=== PATIENT | female | born 1960 | race Caucasian/White ===

== ENCOUNTER → 2016-04-17 | Outpatient (CLI) | payer OTHER ==
--- NOTE | 2016-04-17 09:51 | DX ---
3 Views Left Foot; Weightbearing Reason for examination: Pain following trauma. Findings: A fracture is not identified. Soft tissue swelling is seen adjacent to the fifth metatarsop halangeal articulation. No radiopaque foreign body is identified. The bone alignment is normal. Mild soft tissue swelling is noted. Impression: Negative for definite fracture with soft tissue swelling noted. Follow up radiography rec ommended as clinically directed.
== END ==
LOC: BMCIMAGING 08:42
PROVIDERS: ATTEND Podiatrist Foot & Ankle Surgery
DX: M79.672 Pain in left foot (principal)

== ENCOUNTER → 2016-06-27 | Outpatient (CLI) | payer OTHER | LOC: BMCIMAGING 14:17 | PROVIDERS: ATTEND Internal Medicine Rheumatology | DX: M79.641 Pain in right hand (principal); M79.642 Pain in left hand ==

== ENCOUNTER 2016-11-10 17:05 | Inpatient (IN) | payer OTHER ==
[2016-11-10] MEDS ORDERED: ACETAMINOPHEN 650 MG SUPP PR ONE ×2 (17:10→17:12)
[2016-11-10] MEDS ORDERED: CEFEPIME HCL 2 GM in D5W 100 ML IV ONE (17:16)
[2016-11-10] MEDS ORDERED: NS 1,000 ML IV ONE (17:16)
[2016-11-10] MEDS ORDERED: ONDANSETRON 4 MG/2 ML VIAL ONE (17:25)
[2016-11-10 17:26] LABS: % IMMATURE GRANULYOCYTES 1.3 % (0.0-1.1); ABSOLUTE IMMATURE GRANULOCYTES 0.21 10^3/uL (0.00-0.10); ADD DIFF? NO; ADD MORPH? NO; ADD SCAN? NO; ATYPICAL LYMPHOCYTE FLAG 20 (0-99); FRAGMENT RBC FLAG 0 (0-99); HEMATOCRIT 34.9 % (38.0-47.0); HEMOGLOBIN 12.2 g/dL (12.6-16.3); LEFT SHIFT FLG 10 (0-99); LIPEMIA HEMOLYSIS FLAG 90 (0-99); MEAN CELL HEMOGLOBIN 32.9 pg (27.9-34.1); MEAN CELL VOLUME 94.1 fL (81.5-99.8); PLATELET CLUMPS FLAG 0 (0-99); PLATELET COUNT 225 10^3/uL (150-400); RED BLOOD CELL COUNT 3.71 10^6/uL (4.18-5.33); RED CELL DISTRIBUTION WIDTH 12.1 % (11.5-15.2)
[2016-11-10] MEDS ORDERED: ONDANSETRON 4 MG/2 ML VIAL IVP ONE (17:27)
--- NOTE | 2016-11-10 17:29 | EDPHY ---
H & P HPI/ROS: CHIEF COMPLAINT: Seizure HISTORY OF PRESENT ILLNESS: The patient is a 56-year-old female who is brought in by ambulance. I spoke with ambulance and her once he arrived. The patient has a history only of rheumatoid arthritis currently on methotrexate and Humira. On she began feeling fatigued and vomiting. She and her thought she had the flu. She stayed in bed mostly. The vomiting ceased after 2 days but then today, on Friday, she developed a fever and seemed more confused than usual although she was able to carry a conversation. She began seizing this evening. She has never had a seizure before. Paramedics states that she was still having some contractions in her foot when they arrived to her house 15 minutes after the initial call. In the ambulance she had another seizure episode, tonic-clonic. Paramedics gave 5 mg of Valium. She is protecting her airway. She has stable vital signs. She did urinate on herself. REVIEW OF SYSTEMS: Unable to obtain secondary to condition EXAM: GENERAL: Unresponsive, warm to touch HEAD: Atraumatic, normocephalic. EYES: Pupils equal round and reactive to light, sclera anicteric, conjunctiva are normal. ENT: Minor tongue abrasion, TMs normal, nares patent, positive gag reflex . Moist mucous membranes. NECK: Normal range of motion, supple without lymphadenopathy or JVD. LUNGS: Coarse breath sounds left lower lobe HEART: Left lower lobe coarse breath sounds ABDOMEN: Soft, nontender, normoactive bowel sounds. No guarding, no rebound. No masses appreciated. BACK: No visible trauma or abrasion EXTREMITIES: No spontaneous movement NEUROLOGICAL: Not cooperative with exam, equal pupillary reflex, no tracking. No movement in extremities. PSYCH: Unresponsive SKIN: Warm, dry, normal turgor, no visible rashes or lesions. Source: Patient, Family, EMS Exam Limitations: Clinical condition - Medical/Surgical History Hx Asthma: No Hx Chronic Respiratory Disease: No Hx Diabetes: No Hx Cardiac Disease: No Hx Renal Disease: No Hx Cirrhosis: No Hx Alcoholism: No Hx HIV/AIDS: No Hx Splenectomy or Spleen Trauma: No Other PMH: Rheumatoid arthritis - Family History Significant Family History: No pertinent family hx - Social History Smoking Status: Never smoked Alcohol Use: Sober Drug Use: None Constitutional: Initial Vital Signs Temperature (C) 39.5 C H 11/10/16 17:05 Heart Rate 110 H 11/10/16 17:05 Respiratory Rate 16 11/10/16 17:05 Blood Pressure 158/74 H 11/10/16 17:05 O2 Sat (%) 95 11/10/16 17:05 O2 Delivery Mode Oxymask O2 (L/minute) 10 Allergies/Adverse Reactions: Penicillins Allergy (Verified 11/10/16 17:22) Sulfa (Sulfonamide Antibiotics) Allergy (Verified 11/12/15 21:12) Home Medications: Medication Instructions Recorded Adalimumab [Humira] 40 mg SQ .Q 2 WEEKS 11/10/16 Methotrexate Sodium [Methotrexate] 15 mg PO FR 11/10/16 Medical Decision Making - Diagnostics EKG Interpretation: An EKG obtained and was read and documented in trace view. Please see trace view for full reading and report. Sinus rhythm, slight ST depression in lead V3 and V5 Procedures: Procedure: Lumbar puncture. Indication: Altered mental status, fever After verbal informed consent from patient explaining the risks including infection, bleeding, and neurologic damage, a lumbar puncture was performed after the patient was prepped and draped in the usual fashion with a blunt- tipped needle. The back was anesthetized with 1% lidocaine. Approximately 4 cc of clear fluid was obtained. Opening pressure was not obtained. There were no complications. The procedure was performed by myself. ED Course/Re-evaluation: 5:50 p.m. The patient remains unresponsive. She was given rectal Tylenol soon after arrival for high fever. She has a gag reflex but I am worried she could decompensate. I will intubate her prior to MRI. 5:57 p.m. I was called to the patient's room. She is becoming more alert. She is opening her eyes to voice. She is not following commands. She is smiling at her . 6:10 p.m. the patient is improving. She is smiling and her and follow some commands. She is moving all extremities spontaneously. She is tracking and looking around the room. I am concerned that she may have a mass. If this represents a CVA she is not eligible for lytics because there CT changes. Patient's head of the bed is elevated. She received Decadron, acyclovir and Rocephin up front. 8:10 p.m. I discussed the case with Dr. Lambert Huang who will admit to the medical service. I also discussed the case with Dr. Hackett from [facility]. He agrees with the plan thus far and recommends morning EEG. Will also began replete the patient's potassium. Patient's denies any recent cold sores or shingles or history of genital herpes. Critical Care Time: Critical care time spent by me, Dr. Stevens exclusive with this patient was 65 minutes, exclusive of the PA time exclusive of procedures. The organ system that was at risk was neurologic and I gave IV fluids, antibiotics, steroids, consultations imaging and monitoring of airway to prevent worsening of the patient's condition - Data Points Laboratory Results: Laboratory Results 11/10/16 17:10 11/10/16 20:04 11/10/16 11/10/16 11/10/16 17:55 17:55 08:25 Ca Pathologist Review Real GARCIA MD CSF Herpes I DNA (PCR) Cancelled Pending CSF Herpes II DNA (PCR) Cancelled Pending CSF West Nile IgG Ab Cancelled CSF West Nile IgM Ab Cancelled CSF West Nile Interp Cancelled HSV Source Description Cancelled HSV I DNA PCR Cancelled HSV II DNA PCR Cancelled Miscellaneous Test Pending Microbiology Results: MICROBIOLOGY 11/10/16 17:55 Cerebral Spinal Fluid Gram Stain - Final 11/10/16 17:55 Cerebral Spinal Fluid CSF Culture - Preliminary Medications Given: Acetaminophen (Tylenol) 650 mg PO Q4HRS PRN PRN Reason: Pain, Mild/Fever, Can Take PO Stop: 05/09/17 20:55 Last Admin: 11/11/16 15:19 Dose: 650 mg Enoxaparin Sodium (Lovenox) 40 mg SC DAILY SIDRA Stop: 05/10/17 08:59 Last Admin: 11/11/16 08:49 Dose: 40 mg Acyclovir 700 mg/ Dextrose 114 mls @ 100 mls/hr IV Q8HRS SIDRA Stop: 12/11/16 00:59 Last Admin: 11/11/16 15:25 Dose: 114 mls Levetiracetam 500 mg/ Sodium (Chloride) 105 mls @ 420 mls/hr IV BID SIDRA Stop: 05/09/17 20:59 Last Admin: 11/11/16 08:49 Dose: 105 mls Potassium Chloride 40 meq/ (Sodium Chloride) 1,000 mls @ 75 mls/hr IV CONT SIDRA Stop: 05/09/17 21:29 Last Admin: 11/11/16 13:00 Dose: 1,000 mls Discontinued Medications Acetaminophen (Tylenol Rectal) 650 mg TX EDNOW ONE Stop: 11/10/16 17:13 Last Admin: 11/10/16 17:26 Dose: 650 mg Dexamethasone (Decadron Injection) 10 mg IVP EDNOW ONE Stop: 11/10/16 18:10 Last Admin: 11/10/16 19:40 Dose: 10 mg Cefepime HCl 2 gm/ Dextrose 100 mls @ 200 mls/hr IV EDNOW ONE PRN Reason: Protocol Stop: 11/10/16 17:45 Last Admin: 11/11/16 00:02 Dose: Not Given Sodium Chloride (Ns) 1,000 mls @ 0 mls/hr IV ONCE ONE; Wide Open PRN Reason: Protocol Stop: 11/10/16 17:17 Last Admin: 11/10/16 17:10 Dose: 1,000 mls Acyclovir 700 mg/ Dextrose 264 mls @ 250 mls/hr IV EDNOW ONE Stop: 11/10/16 18:23 Last Admin: 11/10/16 19:40 Dose: 264 mls Ceftriaxone Sodium 2 gm/ (Dextrose) 50 mls @ 100 mls/hr IV EDNOW ONE PRN Reason: Protocol Stop: 11/10/16 18:28 Last Admin: 11/10/16 17:55 Dose: 50 mls Sodium Chloride (Ns) 2,000 mls @ 0 mls/hr IV ONCE ONE PRN Reason: Wide Open Stop: 11/10/16 18:08 Last Admin: 11/10/16 18:13 Dose: Not Given Sodium Chloride (Ns) 2,000 mls @ 4,000 mls/hr 30 ml/kg infuse over 30 min ( 2000 ml) IV EDNOW ONE PRN Reason: Protocol Stop: 11/10/16 18:36 Last Admin: 11/10/16 18:14 Dose: 2,000 mls Levetiracetam 1,000 mg/ Sodium (Chloride) 110 mls @ 440 mls/hr IV EDNOW ONE Stop: 11/10/16 19:57 Last Admin: 11/10/16 19:57 Dose: 110 mls Potassium Chloride (Potassium Cl 10 Meq (Premix)) 100 mls @ 100 mls/hr IV EDNOW ONE Stop: 11/10/16 21:05 Last Admin: 11/10/16 20:10 Dose: 100 mls Potassium Chloride (Potassium Cl 10 Meq (Premix)) 100 mls @ 100 mls/hr IV EDNOW ONE Stop: 11/10/16 21:06 Last Admin: 11/10/16 22:05 Dose: 100 mls Ceftriaxone Sodium 2 gm/ (Dextrose) 50 mls @ 100 mls/hr IV Q12H SIDRA PRN Reason: Protocol Stop: 12/11/16 02:59 Last Admin: 11/11/16 02:50 Dose: 50 mls Vancomycin/Sodium Chloride (Vancomycin 1 Gm (Premix)) 250 mls @ 250 mls/hr IV Q12H SIDRA PRN Reason: Protocol Stop: 12/10/16 20:59 Last Admin: 11/11/16 08:50 Dose: 250 mls Calcium Gluconate (Calcium Gluconate 1 Gm (Premix)) 50 mls @ 100 mls/hr IV ONCE ONE Stop: 11/10/16 22:29 Last Admin: 11/10/16 23:05 Dose: 50 mls Magnesium Sulfate/Dextrose (Magnesium Sulf 1 Gm (Premix)) 100 mls @ 100 mls/hr IV ONCE ONE Stop: 11/10/16 22:59 Last Admin: 11/10/16 22:10 Dose: 100 mls Potassium Chloride (Potassium Cl 10 Meq (Premix)) 100 mls @ 100 mls/hr IV Q1H [facility] Stop: 11/11/16 03:58 Last Admin: 11/11/16 01:09 Dose: 100 mls Calcium Gluconate (Calcium Gluconate 1 Gm (Premix)) 50 mls @ 100 mls/hr IV ONCE ONE Stop: 11/11/16 06:22 Last Admin: 11/11/16 06:19 Dose: 50 mls Ondansetron HCl (Zofran) 4 mg IVP EDNOW ONE Stop: 11/10/16 17:28 Last Admin: 11/10/16 17:37 Dose: 4 mg Departure - Departure Disposition: [facility] Inpatient Acute Clinical Impression: Encephalitis Condition: Critical
[2016-11-10 17:36] LABS: INR 1.24 (0.83-1.16); PROTIME(PATIENT) 15.6 SEC (12.0-15.0)
[2016-11-10 17:37] LABS: APTT 32.5 SEC (23.0-38.0)
--- NOTE | 2016-11-10 17:38 | CPEKG ---
Heart Rate: 95 RR Interval: 632 P-R Interval: 140 QRSD Interval: 100 QT Interval: 344 QTC Interval: 433 P Bring[place]: 48 QRS [place]: 70 T Wave [place]: 37 EKG Severity - BORDERLINE ECG - EKG Impression: SINUS RHYTHM EKG Impression: BORDERLINE ST DEPRESSION, ANTEROLATERAL LEADS Electronically Signed By: Royce Stevens 10-Nov-2016 16:54:26
[2016-11-10] MEDS ORDERED: GADOBUTROL 10 ML VIAL IVP ONE (17:43)
[2016-11-10 17:45] LABS: BASE EXCESS -6.3 mEq/L (-2.5-2.5); BICARBONATE 16 mEq/L (22-26); MEASURED OXYGEN SATURATION 98 % (92-95); PCO2 28 mmHg (34-38); PO2 116 mmHg (65-75); TCO2 17 mEq/L (23-27)
[2016-11-10 17:46] LABS: O2 CONCENTRATIION 100 % (0-100); P/F RATIO 116 RATIO
[2016-11-10 17:46] LABS: ANION GAP 22 mEq/L (8-16); BILIRUBIN,TOTAL 1.2 mg/dL (0.1-1.4); CALCIUM 8.4 mg/dL (8.5-10.4); CARBON DIOXIDE 11 mEq/l (22-31); CHLORIDE 88 mEq/L (97-110); CREATININE 0.9 mg/dL (0.6-1.0); GLOMERULAR FILTRATION RATE > 60; GLUCOSE 158 mg/dL (70-100); POTASSIUM 3.1 mEq/L (3.5-5.2); SODIUM 121 mEq/L (134-144)
[2016-11-10] MEDS ORDERED: CEFTRIAXONE 1 GM/DEXTROSE/50 ML BAG IV ONE (17:47)
[2016-11-10] MEDS ORDERED: PROPOFOL/EMULSION 1,000 MG/100 ML BOTTLE IV ONE (17:50)
[2016-11-10] MEDS ORDERED: cefTRIAXone 2 GM in D5W 50 ML IV ONE (17:59)
[2016-11-10] MEDS: ACYCLOVIR IV ONE ×2 (18:00→19:40)
[2016-11-10] MEDS: NS 2,000 ML IV ONE ×2 (18:00→18:13)
[2016-11-10] MEDS: D5W IV ONE ×2 (18:00→19:40)
[2016-11-10] MEDS ORDERED: NS 2,000 ML IV ONE (18:07)
[2016-11-10] MEDS ORDERED: DEXAMETHASONE 10 MG/ML VIAL IVP ONE (18:09)
[2016-11-10 18:10] LABS: COLOR YELLOW; LEUKOCYTE ESTERASE,URINE NEGATIVE (NEGATIVE); NITRITE,URINE NEGATIVE (NEGATIVE)
[2016-11-10 18:22] LABS: MUCUS 1+ /lpf (NONE-1+); RBC,URINE 25-50 /hpf (0-3)
[2016-11-10 18:22] LABS: LACGHOST ORDER
[2016-11-10 18:35] LABS: PROTEIN, CSF 48 mg/dL (12-60)
[2016-11-10 18:37] LABS: CSF APPEARANCE CLEAR (CLEAR); CSF COLOR COLORLESS (COLORLESS); CSF SUPERNATANT COLORLESS (COLORLESS); WBC, CSF 17 /mm3 (0-5)
[2016-11-10] MEDS ORDERED: ALTEPLASE 100 MG/100 ML VIAL IV ONE (19:12)
[2016-11-10] MEDS ORDERED: levETIRAcetam 1,000 MG in NS 100 ML IV ONE (19:43)
[2016-11-10] MEDS ORDERED: SUCCINYLCHOLINE CHLORIDE*ANESTHESIA ONLY*200 MG/10 ML SYR IVP ONE (19:50)
[2016-11-10] MEDS ORDERED: POTASSIUM Cl (KCl) 20 MEQ/50 ML BAG IV ONE (20:01)
[2016-11-10] MEDS ORDERED: POTASSIUM Cl (KCl) 10 MEQ/100 ML BAG IV ONE (20:05)
[2016-11-10] MEDS ORDERED: POTASSIUM Cl (KCl) 100 ML IV ONE ×2 (20:06→20:07)
[2016-11-10] MEDS ORDERED: ONDANSETRON DISINTEGRATING 4 MG TAB PO PRN (20:56)
[2016-11-10] MEDS ORDERED: PROMETHAZINE HCL 25 MG/ML INJ IVP PRN (20:56)
[2016-11-10] MEDS ORDERED: ONDANSETRON 4 MG/2 ML VIAL IVP PRN (20:56)
[2016-11-10 20:57] LABS: ANION GAP 8 mEq/L (8-16); CALCIUM 6.7 mg/dL (8.5-10.4); CARBON DIOXIDE 21 mEq/l (22-31); CHLORIDE 91 mEq/L (97-110); CREATININE 0.6 mg/dL (0.6-1.0); GLOMERULAR FILTRATION RATE > 60; GLUCOSE 158 mg/dL (70-100); SODIUM 120 mEq/L (134-144)
[2016-11-10] MEDS ORDERED: NS 1,000 ML IV SCH (21:00)
[2016-11-10 21:08] LABS: POTASSIUM 2.5 mEq/L (3.5-5.2)
[2016-11-10] MEDS ORDERED: PROTOCOL MAGNESIUM 1 DOSE IV PRN (21:18)
[2016-11-10] MEDS ORDERED: PROTOCOL POTASSIUM 1 DOSE MISC PRN ×2 (21:18)
[2016-11-10] MEDS ORDERED: PROTOCOL CALCIUM 1 DOSE IV PRN (21:18)
[2016-11-10] MEDS ORDERED: PROTOCOL K PHOSPHATE 1 DOSE IV PRN (21:18)
[2016-11-10 21:44] LABS: MAGNESIUM 1.7 mg/dL (1.6-2.3)
[2016-11-10 21:46] LABS: IONIZED CALCIUM 0.94 MMOL/L (1.12-1.30)
[2016-11-10 21:46] LABS: POTASSIUM 2.5 mEq/L (3.5-5.2)
[2016-11-10] MEDS: POTASSIUM Cl (KCl) 40 MEQ in NS 1,000 ML IV SCH (21:58)
[2016-11-10] MEDS: levETIRAcetam 500 MG in NS 100 ML IV SCH (21:59)
[2016-11-10] MEDS ORDERED: CALCIUM GLUCONATE 50 ML IV ONE (22:00)
[2016-11-10] MEDS ORDERED: MAGNESIUM SULF 1 GM/DEXTROSE 100 ML IV ONE (22:00)
[2016-11-10] MEDS: VANCOMYCIN HCL/NORMAL SALINE 250 ML IV SCH (22:06)
--- NOTE | 2016-11-10 22:27 | GHP ---
[f rep st] HISTORY AND PHYSICAL DATE OF ADMISSION: 11/10/2016 The patient is a pleasant 56-year-old female with a history of rheumatoid arthritis diagnosed in the last 6 months. She is on Remicade and methotrexate. She typically takes these medications on Friday; however, on , she began to develop a headac he and flu-like symptoms. She often gets flu-like symptoms in response to methotrexate. She took t hese medications anyway on Friday. She had headache symptoms on Friday and Friday and then has beltre d malaise since then. She spent some time lying in bed today. She was lying in bed with her husban d and she had a fever, was more confused. Then as she was lying in bed, she went rigid and had what her described as likely a tonic-clonic generalized seizure. 911 was called. It took about 15 minutes. She may have still been seizing on arrival. She had a 2nd seizure in the ambulance. She received 5 mg of Ativan. She had an episode of urinary incontinence, but is otherwise protectin g her airway. Her describes no evidence of oral or genital ulcers. She does not have a history of HSV. She had some vomiting early on in the course, but that has ceased. REVIEW OF SYSTEMS: A complete 10-point review of systems conducted and negative except as noted in the HPI. PAST MEDICAL HISTORY: Rheumatoid arthritis secondary to the cat bite. ALLERGIES: Penicillins and sulfa. MEDICATIONS: Humira and methotrexate. SOCIAL HISTORY: Rare alcohol. No tobacco. Lives with her . He describes a healthy lifesty le. FAMILY HISTORY: Reviewed and unremarkable. PHYSICAL EXAMINATION: PRESENTING VITALS: Temp 39.6, blood pressure 139/70, pulse 84, breathing 22 times a minute, 96% on room air. GENERAL: No acute distress. Minimally responsive. Not following commands. Pupils are small but reactive. Oropharynx is clear. There are no lesions. Mucous memb ranes are moist. NECK: Unable to be assessed. LUNGS: Clear to auscultation bilaterally. HEART: S1, S2. ABDOMEN: Soft, nontender, nondistended. LOWER EXTREMITIES: Without edema. Calves are n ontender. NEUROLOGIC: The patient is encephalopathic and obtunded, not following commands. LABS: White count is 15.7, hematocrit 35, platelets are 225,000. INR is 1.2. ABG shows a pH 7.4, pCO2 of 28, a bicarb of 17. Lactate is elevated at 12.9, which fell within 2 hours to 1.1. Sodium is 121, potassium 3.1, chloride 88, bicarb is 11. Anion gap is 22, subsequently shows a sodium of 1 20, potassium of 2.5, chloride of 91, bicarb 21, BUN 11, creatinine 0.6, glucose 158. UA showed 25- 50 red cells. CSF shows it is clear in color, 70 white cells, 67 red cells. Neutrophil count is pe nding. Glucose 53, protein is 48. HSV West Nile is pending. HSV tests were cancelled. EKG shows sinus at 95 with normal axis and intervals. No ST or T-wave changes. This is interpreted by me. C hest x-ray, interpreted by me, shows no acute cardiopulmonary disease. Head CT shows right temporal lobe vasogenic edema from neoplasm versus infarct. Brain MRI/MRA shows restricted diffusion cortical edema involving the right temporal lobe, especially anteromedial aspe ct of the right frontal lobe. This is consistent with herpes encephalitis. She has patent internal carotid and table mountain of White vessels. No hydrocephalus, midline shift, or herniation. I discussed the case with Dr. Willi Love and Dr. Royce Stevens. 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 1. Seizure. 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 We will load her on Ke ppra and treat the herpes simplex virus. 2. Encephalitis. 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 I discussed the case with Dr. Willi Love who represents treating for bacterial meningitis in the [facility] until her studies return, albeit with low probability. Her immunosuppression is noted. I st arted on ceftriaxone. She is penicillin allergic, so I used vancomycin to cover listeria and I woul d give her 10 mg/kg q.8h of acyclovir. The PCR of the cerebrospinal fluid is pending. 3. Hyponatremia. I suspect this is poor oral intake given the history. I will follow her metaboli c panel as we do not want to raise it too quickly. She could also have syndrome of inappropriate an tidiuretic hormone. We will use caution with her intravenous fluids. Addendum: The patient receiv ed 3 L of fluid it sounds like in the emergency department. She has had a significant drop and her potassium at the point of care at 5 p.m. was 122. It was 121.5 and now 120, so I suspect this is no t syndrome of inappropriate antidiuretic hormone secretion as that would typically cause it to fall. 4. Hypokalemia. Will change her intravenous fluids to include potassium. We will run them at a sl ower rate. We will also give her some intravenous potassium. 5. Prophylaxis. Pharmacologic prophylaxis indicated. 6. Rheumatoid arthritis. We will hold her Humira. DISPOSITION: Inpatient status ICU. /[id number]/MODL
[2016-11-11] MEDS: ACYCLOVIR 700 MG in D5W 100 ML IV SCH ×4 (00:42→21:08)
[2016-11-11 00:49] LABS: POTASSIUM 3.3 mEq/L (3.5-5.2)
[2016-11-11] MEDS: POTASSIUM Cl (KCl) 100 ML IV SCH ×2 (01:08→01:09)
[2016-11-11] MEDS ORDERED: ACETAMINOPHEN 650 MG SUPP PR PRN (01:23)
[2016-11-11] MEDS ORDERED: cefTRIAXone 2 GM in D5W 50 ML IV SCH (03:00)
[2016-11-11 05:49] LABS: % IMMATURE GRANULYOCYTES 0.3 % (0.0-1.1); ABSOLUTE IMMATURE GRANULOCYTES 0.04 10^3/uL (0.00-0.10); ADD DIFF? NO; ADD MORPH? NO; ADD SCAN? NO; ATYPICAL LYMPHOCYTE FLAG 0 (0-99); FRAGMENT RBC FLAG 0 (0-99); HEMATOCRIT 29.4 % (38.0-47.0); HEMOGLOBIN 10.9 g/dL (12.6-16.3); LEFT SHIFT FLG 0 (0-99); LIPEMIA HEMOLYSIS FLAG 90 (0-99); MEAN CELL HEMOGLOBIN 33.9 pg (27.9-34.1); MEAN CELL HEMOGLOBIN CONCENTR. 37.1 g/dL (32.4-36.7); MEAN CELL VOLUME 91.3 fL (81.5-99.8); MEAN PLATELET VOLUME 9.7 fL (8.7-11.7); PLATELET CLUMPS FLAG 10 (0-99); PLATELET COUNT 189 10^3/uL (150-400); RED BLOOD CELL COUNT 3.22 10^6/uL (4.18-5.33); RED CELL DISTRIBUTION WIDTH 12.2 % (11.5-15.2)
[2016-11-11] MEDS ORDERED: CALCIUM GLUCONATE 50 ML IV ONE (05:53)
[2016-11-11 06:05] LABS: ANION GAP 8 mEq/L (8-16); CALCIUM 7.9 mg/dL (8.5-10.4); CARBON DIOXIDE 22 mEq/l (22-31); CHLORIDE 98 mEq/L (97-110); CREATININE 0.6 mg/dL (0.6-1.0); GLOMERULAR FILTRATION RATE > 60; GLUCOSE 127 mg/dL (70-100); MAGNESIUM 2.2 mg/dL (1.6-2.3); POTASSIUM 4.3 mEq/L (3.5-5.2); SODIUM 128 mEq/L (134-144)
[2016-11-11] MEDS: levETIRAcetam 500 MG in NS 100 ML IV SCH ×2 (08:49→21:08)
[2016-11-11] MEDS: ENOXAPARIN 40 MG/0.4 ML SYR SC SCH (08:49)
[2016-11-11] MEDS: VANCOMYCIN HCL/NORMAL SALINE 250 ML IV SCH (08:50)
--- NOTE | 2016-11-11 10:49 | GCON ---
[f rep st] CONSULTATION INFECTIOUS DISEASES CONSULATION DATE OF CONSULTATION: 11/11/2016 REFERRING PHYSICIAN: Jad Huang MD REASON FOR CONSULTATION: Encephalitis. HISTORY OF PRESENT ILLNESS: The patient is a 56-year-old female with a past medical history of rheu matoid arthritis, on immunosuppressive therapy with Humira and methotrexate, who I am asked to see i n consultation for encephalitis. The patient's notes that beginning approximately Friday or of last week the patient developed a headache, which was like a migraine. This was sub sequently followed by nausea and vomiting. 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 On Friday, she did take her methotrexate and Humira as she typically does every 2 w eeks. Over the weekend, the patient developed progressive confusion with fever to 103. Yesterday, the patient's noted activity suggesting a tonic colonic seizure, prompting a call to 911. W hen paramedics arrived, the patient was felt to be seizing, and she subsequently had an additional s eizure in route to the hospital. Evaluation has included a lumbar puncture, which showed 17 white b lood cells, 67 red blood cells, neutrophils 6%, lymphocytes 63%, monocytes 31% with glucose 53, and protein 48. MRI of the brain was performed showing inflammatory changes in the right temporal lobe and frontal lobe concerning for herpes encephalitis. No evidence of vascular insufficiency. The pa tient was started empirically on high-dose acyclovir, vancomycin, and ceftriaxone. Gram stain of e spinal fluid was negative and has shown no growth to date. There is no recent travel history. e patient does not have history of cold sores or genital HSV. The patient does have indoor pet cats at home with no recent bites or scratches. The patient lives near [facility], and has n ot noted any mosquito bites. No animals around their house. She does not eat unpasteurized da iry products. She does not eat deli meat or hot dogs. Given the above findings, I am now asked to assist in her ongoing management. PAST MEDICAL HISTORY: Rheumatoid arthritis, on Humira and methotrexate. PAST SURGICAL HISTORY: Unremarkable other than orthopedic surgery in childhood. CURRENT MEDICATIONS: Acyclovir 700 mg IV q.8 hours, ceftriaxone 2 g IV q.12 hours, vancomycin 1 g I V q.12 hours, status post Decadron 10 mg IV x1, Lovenox 40 mg subcu daily, Keppra 500 mg IV twice da klarissa, potassium supplementation. ALLERGIES: Penicillin and sulfonamides associated with hives. SOCIAL HISTORY: The patient does not smoke, and does not drink significant alcohol. No drug use hi story. 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 No recent travel. Pet cats at home as outlined above. N o ill contacts. FAMILY HISTORY: Sister had bilateral mastectomy as preventive measure. PHYSICAL EXAMINATION: VITAL SIGNS: Temperature maximum 39.6, temperature current 37.2, heart rate 69, respiratory rate 14, blood pressure 125/65, oxygen saturation 97% on 1 L. GENERAL: The patient is well nourished, well developed with mild agitation present, such as repeatedly trying to remove the pulse oximeter; she appears nontoxic. HEENT: There is no scleral icterus, conjunctival injecti on, or conjunctival petechiae. Pupils are equal, round, reactive to light. There is no tenderness over the sinus regions. Oral mucosal surfaces appear moist. NECK: Supple without palpable lymphad enopathy or thyromegaly. CHEST: Clear to auscultation bilaterally without adventitious sounds. Re spiratory effort is normal. CARDIOVASCULAR: Regular rate and rhythm without murmurs, gallops, or r ubs. ABDOMEN: Soft, nontender, nondistended. There is no palpable organomegaly. Bowel sounds are present. MUSCULOSKELETAL: There is no cyanosis, clubbing, or edema. SKIN: No rashes are present . There are no stigmata of endocarditis. The skin is warm and dry to touch. NEUROLOGIC: The yaquelin ent is awake and able to squeeze the nursing staff hand and pushed down with both feet. She tries t o remove her pulse oximeter repeatedly. She is unable to verbalize. No seizure activity noted. LY MPHATICS: There are no cervical, supraclavicular, or inguinal nodes palpable. LABORATORY DATA: White blood cell count 12.5, hematocrit 29.4, platelets 189, neutrophils 84%, seru m creatinine is 0.6, lactate at time of presentation is 12.9 and decreases to 1.1 within 2 hours. U rinalysis shows 25-50 red blood cells, and 1-3 white blood cells. CSF as outlined in history of pre sent illness; CSF, HSV, PCR, and West Nile virus antibodies are pending. Gram stain of CSF shows no organisms with culture being no growth to date. Blood cultures x2 are pending. MRI of brain as ou tlined in the history of present illness, which was reviewed and interpreted by me with Radiology to day. Chest x-ray shows no focal infiltrate. IMPRESSION: 1. Encephalitis: Clinical presentation, CSF findings, and MRI findings all concerning for possibil ity of herpes simplex encephalitis. Other viral etiologies such as West Nile virus, VZV or enterovi elaina are considerations as well. Suspect that bacterial meningitis will be of lower likelihood based on CSF findings and presentation. Listeria is a consideration in an immunosuppressed host, althoug h I think this will be less likely based on overall constellation of clinical findings. Fungal etio logies would be unlikely for this presentation. 2. Leukocytosis: Likely associated with seizure. 3. Lactic acidosis: Prompt resolution and also likely associated with seizure. RECOMMENDATIONS: 1. Continue IV acyclovir 10 mg/kg IV q.8 hours, which will calculate to 600 mg IV q.8 hours. 2. Discontinue vancomycin and ceftriaxone. 3. We will add VZV and enterovirus PCRs to spinal fluid. 4. Followup HSV, PCR and West Nile virus antibodies on spinal fluid as available. 5. We will check West Nile virus antibodies in serum. 6. If above unrevealing, we will assess spinal fluid for West Nile virus by PCR. 7. Discontinue droplet and contact precautions. 8. Clinical findings and plan were reviewed with the patient's and ICU team. Thank you for this consultation. We will continue to follow the patient with you. /[id number]/MODL
[2016-11-11] MEDS: POTASSIUM Cl (KCl) 40 MEQ in NS 1,000 ML IV SCH (13:00)
--- NOTE | 2016-11-11 13:44 | HOSPPROG ---
Hospitalist Progress Note Assessment/Plan: # Acute Encephalitis - suspected herpetic based on temporal lobe distribution MRI brain (personally reviewed and interpreted) marked add temporal lobe inflammation on the right as well as frontal Oxygen saturations 96% on 1 L - IV acyclovir - follow CSF studies - DC IV antibiotics per Infectious Disease - guarded prognosis # Rheumatoid arthritis- receiving immuno modulators in the outpatient setting # acute leukocytosis- is secondary to encephalitis- 15->12 - follow daily # acute hyponatremia- presumed hypovolemic based on response to IV fluids on presentation 121->128 - recheck this afternoon to rule out correction that is too rapid # normocytic anemia- presumed chronic- - follow hemoglobin daily # prophylaxis enoxaparin # diet NPO until speech therapy eval # despite greater than 2 midnights as the patient presenting with acute encephalitis requiring critical care support I have discussed the case with Dr. Diaz and Dr. Burns- will continue forward with IV acyclovir can discontinue other antibiotics Subjective: No events overnight Objective: Vital Signs Temp Pulse Resp BP Pulse Ox 37.2 C 68 16 119/65 96 11/11/16 09:00 11/11/16 10:00 11/11/16 10:00 11/11/16 10:00 11/11/16 10:00 Laboratory Results 11/11/16 05:30 11/11/16 05:30 11/10/16 11/11/16 11/12/16 05:59 05:59 05:59 Intake Total 3974 Output Total 3650 Balance 324 PT 15.6 SEC (12.0-15.0) H 11/10/16 17:10 INR 1.24 (0.83-1.16) H 11/10/16 17:10 - Physical Exam Constitutional: appears nourished Eyes: anicteric sclera Ears, Nose, Mouth, Throat: dry mucous membranes Cardiovascular: regular rate and rhythym Respiratory: no respiratory distress, no rales or rhonchi Gastrointestinal: normoactive bowel sounds Genitourinary: no bladder fullness Skin: warm, normal color Musculoskeletal: No asymmetric calves Neurologic: No AAOx3 Psychiatric: No agitated Lymph, Heme, Immunologic: no cervical LAD ICD10 Worksheet Patient Problems: Problems Problem Status Onset Encephalitis Acute Cat bite of left wrist Acute Cellulitis Acute
[2016-11-11] MEDS: ACETAMINOPHEN 325 MG TAB PO PRN (15:19)
[2016-11-11 16:05] LABS: ANION GAP 7 mEq/L (8-16); CARBON DIOXIDE 23 mEq/l (22-31); CHLORIDE 99 mEq/L (97-110); CREATININE 0.6 mg/dL (0.6-1.0); GLOMERULAR FILTRATION RATE > 60; GLUCOSE 85 mg/dL (70-100); POTASSIUM 4.3 mEq/L (3.5-5.2); SODIUM 129 mEq/L (134-144)
--- NOTE | 2016-11-11 16:47 | GCON ---
[f rep st] CONSULTATION PULMONARY CRITICAL CARE CONSULTATION REASON FOR CONSULTATION: Encephalitis. HISTORY: The patient is a 56-year-old generally healthy woman. She does have underlying rheumatoid arthritis and has been on methotrexate and most recently Humira for the last month. She developed a headache 4 days prior to admission. This became associated with nausea and vomiting. There is no history of aspiration. She was febrile at home and felt poorly, she was staying in bed. Yesterday she had a seizure. Her called 911. She was brought to the emergency department. MRI of the brain was performed which showed inflammatory changes consistent with herpes encephalitis. She was started on acyclovir and given IV antibiotics. She was admitted to the intensive care unit. Keppra was given for seizure control. PAST MEDICAL HISTORY: Remarkable for rheumatoid arthritis and immunosuppression as outlined above. PAST SURGICAL HISTORY: Negative. SOCIAL HISTORY: The patient is , with a very supportive . Significant alcohol is negative. She does not smoke, uses no drugs. PHYSICAL EXAMINATION: GENERAL: Reveals a woman who appears to be sleeping. She is weekly arousable, opens her eyes to voice and stimulation. She will follow some simple commands but is relatively nonverbal at this point in time. VITAL SIGNS: Blood pressure is 120/65, heart rate 70, with sinus rhythm on the monitor. She is on 1 L by nasal cannula. HEENT: Mucous membranes are somewhat dry. HEENT: Unremarkable for lymphadenopathy or thyromegaly. CHEST: Clear bilaterally. HEART: Regular in rate and rhythm. ABDOMEN: Soft and nontender. Her bowel sounds are present but diminished. EXTREMITIES: Unremarkable for edema, cords, or tenderness. NEUROLOGIC: Nonfocal. She is starting to move all extremities more, including movement to command. There is no seizure activity. She is largely nonverbal currently, but was talking to her earlier. DATABASE: Radiologic studies are as outlined above. LABORATORY: White blood cell count is 12,500, hematocrit 29. PT is 15 with a PTT of 32. Blood gas yesterday on admission was normal, initial lactate was elevated at approximately 13, secondary to her seizure. Followup lactate a couple hours later was 1.1. Sodium is 128, potassium 4.3, BUN 7 with a creatinine of 0.6. Glucose is 127, calcium is 7.9. Ionized calcium is low at 1.1, phosphorus 2.9, magnesium 2.2. ASSESSMENT AND PLAN: Encephalitis, possibly herpes versus other viral pathogens like West Nile. 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 She is on acyclovir. Infectious Disease is following. Final serology will be awaited. The patient will be kept in the intensive care unit. Further plans and recommendations will be made based on her progress over the next 12-24 hours. /[id number]/MODL MTDD
[2016-11-11 18:41] LABS: POTASSIUM 3.9 mEq/L (3.5-5.2)
[2016-11-11] MEDS ORDERED: POTASSIUM CL 10 MEQ TAB PO ONE (19:30)
[2016-11-12] MEDS: ACETAMINOPHEN 325 MG TAB PO PRN ×4 (00:34→22:52)
[2016-11-12] MEDS: ACYCLOVIR 700 MG in D5W 100 ML IV SCH (05:32)
[2016-11-12] MEDS: POTASSIUM Cl (KCl) 40 MEQ in NS 1,000 ML IV SCH (06:40)
[2016-11-12 06:55] LABS: IONIZED CALCIUM 1.15 MMOL/L (1.12-1.30)
[2016-11-12 06:59] LABS: HEMATOCRIT 30.4 % (38.0-47.0); HEMOGLOBIN 10.7 g/dL (12.6-16.3); MEAN CELL HEMOGLOBIN 32.9 pg (27.9-34.1); MEAN CELL HEMOGLOBIN CONCENTR. 35.2 g/dL (32.4-36.7); MEAN CELL VOLUME 93.5 fL (81.5-99.8); RED BLOOD CELL COUNT 3.25 10^6/uL (4.18-5.33); RED CELL DISTRIBUTION WIDTH 12.4 % (11.5-15.2)
[2016-11-12 07:26] LABS: ANION GAP 5 mEq/L (8-16); CALCIUM 8.4 mg/dL (8.5-10.4); CARBON DIOXIDE 25 mEq/l (22-31); CHLORIDE 99 mEq/L (97-110); CREATININE 0.8 mg/dL (0.6-1.0); GLOMERULAR FILTRATION RATE > 60; GLUCOSE 83 mg/dL (70-100); POTASSIUM 4.3 mEq/L (3.5-5.2); SODIUM 129 mEq/L (134-144)
[2016-11-12] MEDS: ENOXAPARIN 40 MG/0.4 ML SYR SC SCH (09:18)
[2016-11-12] MEDS: levETIRAcetam 500 MG in NS 100 ML IV SCH (09:18)
--- NOTE | 2016-11-12 09:23 | PCMIDPN ---
Assessment/Plan: Assessment/Plan: 1. Encephalitis: -CSF with lymphocytic pleocytosis - Multiple studies pending including: HSV/VZV PCR, WNV AB's (serum/CSf), Enterovirus -Brain MRI reviewed; right temporal lobe abnormalities noted -Above findings suspicious for HSV encephalitis as possible etiology. -Currently on empiric Acyclovir IV (10mg/kg) q8- -Follow labs, hydration status closely while on acyclovir -Reviewed available lab results with family, updated on pending studies -Care coordinated with warehouse hand and RN micro blood cx pending meds acyclovir 600mg IV q8- 11/12/16 (previously on 700mg q8-11/11/16) Subjective: Remains in icu. awake, answering questions albeit slowly. mostly oriented but still with some slight confusion. continues with right temporal headaches. denies vision changes, neck stiffness. Denies sob, abd pain. no BM's as of yet. only on clear liquids. dry cough. for speech eval later today. family at bedside. Objective: Vital Signs Temp Pulse Resp BP Pulse Ox 39 C H 69 16 152/69 H 96 11/12/16 08:00 11/12/16 08:00 11/12/16 08:00 11/12/16 08:00 11/12/16 08:00 Laboratory Results 11/12/16 06:40 11/12/16 06:40 11/11/16 11/12/16 11/13/16 05:59 05:59 05:59 Intake Total 3974 2533 Output Total 3650 2050 350 Balance 324 483 -350 - Physical Exam General Appearance: alert EENT: other (tongue bitten on both sides of tongue. no thrush. no posterior pharyngeal erythema or oral lesions noted.) Respiratory: lungs clear Cardiac/Chest: regular rate, rhythm Extremities: No swelling Abdomen: normal bowel sounds, non-tender, soft, No distended Pelvic Exam: christianson Skin: No erythema - Line/s other Lines: other (two peripheral iv's) ICD10 Worksheet Patient Problems: Problems Problem Status Onset Encephalitis Acute Cat bite of left wrist Acute Cellulitis Acute
--- NOTE | 2016-11-12 13:39 | PDINTPN ---
[place] Operator Progress Note Assessment/Plan: Assessment: Encephalitis: Possible HSV, query other viral pathogens. No evidence of a bacterial infection. On acyclovir. Improving mental status. id following. Seizure: Secondary to 1. On Keppra. Metabolic: Hyponatremia, sodium 129: Follow. Fluids in normal saline where possible. May need fluid restriction. Anemia: Hematocrit 30. No evidence of bleeding. Suspect equilibration and illness suppressing bone marrow production. DVT prophylaxis: On enoxaparin Plan: Continue present care. Can transfer to a medical-surgical bed later today as she is hemodynamically stable and neurologically improved. Follow sodium, H/H. Subjective: Lethargic, more arousable and responsive, has some right-sided headache. Not hungry. Objective: Vital Signs Temp Pulse Resp BP Pulse Ox 38.1 C 57 L 16 126/67 H 95 11/12/16 12:00 11/12/16 12:00 11/12/16 12:00 11/12/16 12:00 11/12/16 12:00 Laboratory Results 11/12/16 06:40 11/12/16 06:40 11/11/16 11/12/16 11/13/16 05:59 05:59 05:59 Intake Total 3974 2533 Output Total 3650 2050 350 Balance 324 483 -350 PT 15.6 SEC (12.0-15.0) H 11/10/16 17:10 INR 1.24 (0.83-1.16) H 11/10/16 17:10 Multiple serologies: Pending. Cultures: all negative to date. Laboratory Tests 11/12/16 11/12/16 06:40 06:40 Calcium 8.4 L Ionized Calcium 1.15 Phosphorus 2.8 D Magnesium 2.0 Physical Exam - Physical Exam General Appearance: other ( Lethargic, eyes closed, arouses easily, much more responsive, longer verbal communication.) EENT: PERRL/EOMI, other ( On room air) Neck: normal inspection ( no JVD, no adenopathy) Respiratory: lungs clear, decreased breath sounds ( at bases) Cardiac/Chest: regular rate, rhythm Abdomen: normal bowel sounds, non-tender, soft Pelvic Exam: other ( Swift catheter in lace) Skin: normal color, warm/dry Extremities: No pedal edema Neuro/Psych: no motor/sensory deficits ( moves all extremities equally, good strength), cognition abnormalities ( oriented x3 but remains lethargic.) ICD10 Worksheet Patient Problems: Problems Problem Status Onset Encephalitis Acute Cat bite of left wrist Acute Cellulitis Acute
[2016-11-12] MEDS: ACYCLOVIR 600 MG in D5W 100 ML IV SCH ×2 (14:30→22:10)
--- NOTE | 2016-11-12 16:00 | HOSPPROG ---
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 Diaz patient markedly improved today safe for transition to medical-surgical floor Subjective: Denies pain Objective: Vital Signs Temp Pulse Resp BP Pulse Ox 38.1 C 57 L 16 126/67 H 95 11/12/16 12:00 11/12/16 12:00 11/12/16 12:00 11/12/16 12:00 11/12/16 12:00 Laboratory Results 11/12/16 06:40 11/12/16 06:40 11/11/16 11/12/16 11/13/16 05:59 05:59 05:59 Intake Total 3974 2533 Output Total 3650 2050 1800 Balance 324 483 -1800 PT 15.6 SEC (12.0-15.0) H 11/10/16 17:10 INR 1.24 (0.83-1.16) H 11/10/16 17:10 - Physical Exam Constitutional: appears nourished Eyes: anicteric sclera Ears, Nose, Mouth, Throat: moist mucous membranes Cardiovascular: regular rate and rhythym Respiratory: no respiratory distress, no rales or rhonchi Gastrointestinal: normoactive bowel sounds, soft, non-tender abdomen Genitourinary: no bladder fullness Skin: normal color Musculoskeletal: No asymmetric calves Neurologic: AAOx3, No facial droop Psychiatric: encephalopathic Lymph, Heme, Immunologic: no cervical LAD ICD10 Worksheet Patient Problems: Problems Problem Status Onset Encephalitis Acute Cat bite of left wrist Acute Cellulitis Acute
[2016-11-12 20:38] LABS: POTASSIUM 4.1 mEq/L (3.5-5.2)
[2016-11-12] MEDS: levETIRAcetam 500 MG TAB PO SCH (21:51)
[2016-11-12 23:31] LABS: INTERPRETATION See Comments; WEST NILE VIRUS IGG Negative (Negative); WEST NILE VIRUS IGM Negative (Negative)
[2016-11-13 05:07] LABS: IONIZED CALCIUM 1.09 MMOL/L (1.12-1.30)
[2016-11-13 05:12] LABS: % IMMATURE GRANULYOCYTES 0.8 % (0.0-1.1); ABSOLUTE IMMATURE GRANULOCYTES 0.06 10^3/uL (0.00-0.10); ADD DIFF? NO; ADD MORPH? NO; ADD SCAN? NO; ATYPICAL LYMPHOCYTE FLAG 20 (0-99); FRAGMENT RBC FLAG 0 (0-99); HEMATOCRIT 30.7 % (38.0-47.0); HEMOGLOBIN 10.9 g/dL (12.6-16.3); LEFT SHIFT FLG 0 (0-99); LIPEMIA HEMOLYSIS FLAG 90 (0-99); MEAN CELL HEMOGLOBIN CONCENTR. 35.5 g/dL (32.4-36.7); PLATELET CLUMPS FLAG 0 (0-99); PLATELET COUNT 218 10^3/uL (150-400); RED CELL DISTRIBUTION WIDTH 12.1 % (11.5-15.2)
[2016-11-13 05:25] LABS: ALANINE AMINOTRANSFERASE 41 IU/L (9-52); ALBUMIN 2.7 g/dL (3.5-5.0); ALKALINE PHOSPHATASE 31 IU/L (38-126); ANION GAP 5 mEq/L (8-16); ASPARTATE AMINOTRANSFERASE 43 IU/L (14-46); BILIRUBIN,TOTAL 0.6 mg/dL (0.1-1.4); CALCIUM 8.4 mg/dL (8.5-10.4); CARBON DIOXIDE 25 mEq/l (22-31); CHLORIDE 100 mEq/L (97-110); CREATININE 0.7 mg/dL (0.6-1.0); GLOMERULAR FILTRATION RATE > 60; GLUCOSE 87 mg/dL (70-100); MAGNESIUM 2.1 mg/dL (1.6-2.3); SODIUM 130 mEq/L (134-144); TOTAL PROTEIN 5.1 g/dL (6.3-8.2)
[2016-11-13 05:33] LABS: % SATURATION 13 % (20-55); TOTAL IRON BINDING CAPACITY 234 ug/dL (260-490)
[2016-11-13] MEDS: ACYCLOVIR 600 MG in D5W 100 ML IV SCH ×3 (05:50→22:00)
[2016-11-13 05:56] LABS: FERRITIN - BCH 90.9 ng/mL (6.2-264.0)
[2016-11-13] MEDS: levETIRAcetam 500 MG TAB PO SCH ×2 (07:48→22:00)
[2016-11-13] MEDS: ENOXAPARIN 40 MG/0.4 ML SYR SC SCH (07:48)
[2016-11-13] MEDS: ACETAMINOPHEN 325 MG TAB PO PRN ×2 (07:55→16:17)
[2016-11-13] MEDS ORDERED: CALCIUM GLUCONATE 50 ML IV ONE (08:15)
--- NOTE | 2016-11-13 08:57 | HOSPPROG ---
Hospitalist Progress Note Assessment/Plan: Patient is a 56-year-old female who has a history of rheumatoid arthritis on immunosuppressive therapy who presented to the emergency room with acute encephalitis. At home she developed a headache which was followed by nausea and vomiting. Her noticed that she had a tonic-clonic seizure and called 911. When the paramedics arrived they noted that the patient was likely seizing. She was admitted for further evaluation. She had a lumbar puncture performed and an MRI was performed in addition. The MRI of the brain was concerning for herpes encephalitis. She was empirically started on high-dose acyclovir, vancomycin and ceftriaxone. Today during my evaluation she is much improved per her . Today is my 1st encounter with the patient. Chart reviewed. Discussed her care with Dr. Burns. # Acute Encephalitis - suspected herpetic based on temporal lobe distribution- clinically much improved today MRI brain shows temporal lobe inflammation on the right as well as frontal concern for herpes encephalitis IV acyclovir serum west Nile antibodies negative, VSV pending # Rheumatoid arthritis- receiving immuno modulators in the outpatient setting # acute leukocytosis resolved # acute hyponatremia Na better @ 130 # normocytic anemia and iron deficiency anemia f/u with her PCP # Mild hypocalcemia will follow and replace #Headache: suspect this is secondary from the inflammation in her head/ recommending hob up trial of ibuprofen #Hypotension notified by nursing staff her systolic bp is in the 80's: will give a fluid bolus # recent seizures on Keppra # DVT prophylaxis low molecular weight heparin # plan. Continue current treatment. Will follow labs. Subjective: [place] is c/o a headache. Objective: Vital Signs Temp Pulse Resp BP Pulse Ox 37.3 C 72 14 132/82 H 90 L 11/13/16 08:24 11/13/16 08:24 11/13/16 08:24 11/13/16 08:24 11/13/16 08:24 Laboratory Results 11/13/16 04:54 11/13/16 04:54 11/12/16 11/13/16 11/14/16 05:59 05:59 05:59 Intake Total 0353 1326 Output Total 3160 2200 Balance 483 -874 PT 15.6 SEC (12.0-15.0) H 11/10/16 17:10 INR 1.24 (0.83-1.16) H 11/10/16 17:10 - Physical Exam Constitutional: appears nourished, No not in pain (headache) Eyes: PERRL, other (wearing glasses) Ears, Nose, Mouth, Throat: hearing normal Cardiovascular: regular rate and rhythym Respiratory: no respiratory distress Gastrointestinal: normoactive bowel sounds Skin: warm Musculoskeletal: generalized weakness Neurologic: AAOx3 Psychiatric: interacting appropriately, not anxious, flat affect ICD10 Worksheet Patient Problems: Problems Problem Status Onset Encephalitis Acute Cat bite of left wrist Acute Cellulitis Acute
[2016-11-13] MEDS ORDERED: IBUPROFEN 200 MG TAB PO ONE (11:37)
[2016-11-13 11:44] LABS: MISCELLANEOUS TEST See Comments
[2016-11-13] MEDS ORDERED: NS 250 ML IV ONE (11:47)
--- NOTE | 2016-11-13 12:02 | PCMIDPN ---
Assessment/Plan: Assessment/Plan: * Encephalitis: Marked clinical improvement since time of admission. 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 Other viral etiologies such as VZV or West Nile virus remain considerations. Serum West Nile virus antibodies are negative which makes this less likely although we have seen prior cases where antibodies were initially negative with positive PCR testing from spinal fluid. Continue high-dose acyclovir which she is tolerating well. Await CSF studies for HSV, VZV, enterovirus, and West Nile virus. Anticipate HSV result will be available by tomorrow from [facility]. I have spoken with microbiology lab which has additional CSF which will be forwarded to [facility] for testing as outlined above given amount of CSF at [facility] is inadequate to run all diagnostic tests currently ordered. Continue to maintain hydration and follow renal function on high-dose acyclovir. Time spent, greater than 35 minutes, of which greater than half was spent in education/counseling/coordination of care related to encephalitis, diagnostic testing, and plan of care. 11/13/16 11:59 Subjective: Patient complains of headache. Significantly more interactive when compared to time of admission. No further seizure activity. Objective: Vital Signs Temp Pulse Resp BP Pulse Ox 37.3 C 72 14 132/82 H 90 L 11/13/16 08:24 11/13/16 08:24 11/13/16 08:24 11/13/16 08:24 11/13/16 08:24 Laboratory Results 11/13/16 04:54 11/13/16 04:54 11/12/16 11/13/16 11/14/16 05:59 05:59 05:59 Intake Total 0193 1326 Output Total 9320 2200 Balance 483 -874 Acyclovir # 3 CSF culture no growth Blood cultures x2 no growth CSF HSV PCR/VZV PCR/enterovirus PCR/West Nile virus antibodies pending Serum West Nile virus antibodies negative - Physical Exam General Appearance: alert, no apparent distress EENT: other (EOMI), No scleral icterus, No conjunctival petechiae Neck: supple Neuro/Psych: alert, oriented x 3, cognition abnormalities (Slow responses but able to name stethoscope and cell phone as well as ; able to perform simple math) ICD10 Worksheet Patient Problems: Problems Problem Status Onset Encephalitis Acute Cat bite of left wrist Acute Cellulitis Acute
[2016-11-13 13:51] LABS: POTASSIUM 4.2 mEq/L (3.5-5.2)
[2016-11-13 19:56] LABS: POTASSIUM 4.8 mEq/L (3.5-5.2)
[2016-11-13] MEDS: POTASSIUM Cl (KCl) 40 MEQ in NS 1,000 ML IV SCH (21:06)
[2016-11-13 22:53] LABS: HSV 1 PCR, CSF Positive (Negative); HSV 2 PCR, CSF Negative (Negative)
[2016-11-14] MEDS: NS W/ 20 KCl/L 1,000 ML IV SCH ×2 (04:01→09:45)
[2016-11-14] MEDS: ACETAMINOPHEN 325 MG TAB PO PRN (04:08)
[2016-11-14 05:27] LABS: IONIZED CALCIUM 1.09 MMOL/L (1.12-1.30)
[2016-11-14] MEDS: ACYCLOVIR 600 MG in D5W 100 ML IV SCH ×3 (05:38→21:36)
[2016-11-14 05:45] LABS: MAGNESIUM 2.1 mg/dL (1.6-2.3); POTASSIUM 4.5 mEq/L (3.5-5.2)
[2016-11-14 06:10] LABS: POTASSIUM 4.1 mEq/L (3.5-5.2)
[2016-11-14] MEDS: levETIRAcetam 500 MG TAB PO SCH ×2 (08:32→21:36)
[2016-11-14] MEDS: ENOXAPARIN 40 MG/0.4 ML SYR SC SCH (08:33)
--- NOTE | 2016-11-14 08:51 | HOSPPROG ---
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, confirmed by CSF improving overall s/p Sz, continue keppra MRI brain shows temporal lobe inflammation on the right as well as frontal IV acyclovir, transition to PO and length of treatment per ID, discussed with Dr Love today also serum west Nile antibodies negative, VZV pending # Rheumatoid arthritis receiving immuno modulators in the outpatient setting, [facility] spoke with Dr Mclaughlin today re hospital issues # acute hyponatremia Na better @ 133 still on IVF for now # normocytic anemia and iron deficiency anemia f/u with her PCP Dr Lemus # Mild hypocalcemia resolved #Headache: suspect this is secondary from the inflammation, no sxs of spinal ABDI change pain meds, trial toradol encouraged fluids, caffeine if able consider blood patch and/or steroids if not improving today #Hypotension resolved # DVT prophylaxis lovenox PCP Dr Lemus FULL CODE DISPO- anticipate > 2 mdnts for IV acyclovir, symptom management Subjective: Still with significant ABDI, 12/31. No difference if upright or laying flat. Not photophobic. Minld N, no v. , daughter in room. Dr Love in room also. Objective: Vital Signs Temp Pulse Resp BP Pulse Ox 98.8 F 66 16 126/67 H 97 11/14/16 08:00 11/14/16 08:00 11/14/16 08:00 11/14/16 08:00 11/14/16 08:00 Laboratory Results 11/13/16 04:54 11/14/16 05:52 11/12/16 11/13/16 11/14/16 11:59 11:59 11:59 Intake Total 2533 1326 275 Output Total 2400 1850 2450 Balance 133 -524 -2175 PT 15.6 SEC (12.0-15.0) H 11/10/16 17:10 INR 1.24 (0.83-1.16) H 11/10/16 17:10 - Time Spent With Patient Time Spent with Patient: greater than 35 minutes Time Spent with Patient: Greater than 35 minutes spent on this patients care, greater than 50% of time spent counseling, educating, and coordinating care regarding the above mentioned plan. - Pending Discharge Pending Discharge Within 48 Hours: No - Physical Exam Constitutional: no apparent distress, appears nourished, uncomfortable Eyes: anicteric sclera, EOMI Ears, Nose, Mouth, Throat: moist mucous membranes, hearing normal Cardiovascular: regular rate and rhythym, no murmur, rub, or gallop Respiratory: no respiratory distress, no rales or rhonchi, clear to auscultation Gastrointestinal: normoactive bowel sounds, soft, non-tender abdomen, no palpable masses Skin: warm Neurologic: other (ARNDT) Psychiatric: interacting appropriately, not anxious, not encephalopathic, thought process linear ICD10 Worksheet Patient Problems: Problems Problem Status Onset Encephalitis Acute Cat bite of left wrist Acute Cellulitis Acute
[2016-11-14] MEDS ORDERED: KETOROLAC 30 MG/1 ML SDV IVP ONE (08:58)
[2016-11-14] MEDS ORDERED: HYDROCODONE/APAP 5/325 TAB PO PRN (09:30)
--- NOTE | 2016-11-14 09:50 | PCMIDPN ---
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 Patient is clinically recovering which is wonderful. She continues to have a headache which does not seem to be positional. Likely secondary to primary process. Patient has been receiving IV acyclovir at central nervous system dosing levels. This was started at admission. At this point we will continue the IV acyclovir at current dose for a total of 2-4 weeks depending on clinical improvement. Suspect a total of 4 weeks with possible changed over to oral Valtrex if significantly clinically improved at follow-up. after completion of treatment patient will need to be on chronic oral Valtrex suppression given the clear need for immunosuppression going forward for treatment of her rheumatoid arthritis. Plan: 1. Continue IV acyclovir current dose. 2. check chemistry panel in a.m.. 3. follow-up clinical improvement. Encourage PT OT. 11/14/16 09:46 11/14/16 09:48 Subjective: Patient is resting in her hospital bed. She complains of a headache. This headache is not positional. She also denies that room light or any light is bothersome. No fevers or chills. No rash. Objective: Acyclovir #4 Vital Signs Temp Pulse Resp BP Pulse Ox 37.1 C 66 16 126/67 H 97 11/14/16 08:00 11/14/16 08:00 11/14/16 08:00 11/14/16 08:00 11/14/16 08:00 Laboratory Results 11/13/16 04:54 11/14/16 05:52 11/13/16 11/14/16 11/15/16 05:59 05:59 05:59 Intake Total 1326 275 150 Output Total 2200 2450 900 Balance -964 -2175 -750 - Physical Exam General Appearance: WD/WN, alert, no apparent distress, thin, non-toxic Respiratory: lungs clear, normal breath sounds, No respiratory distress Cardiac/Chest: regular rate, rhythm, No tachycardia Skin: normal color, warm/dry, No rash Neuro/Psych: alert, normal mood/affect, oriented x 3 ICD10 Worksheet Patient Problems: Problems Problem Status Onset Encephalitis Acute Cat bite of left wrist Acute Cellulitis Acute
[2016-11-14 10:06] LABS: ANION GAP 8 mEq/L (8-16); CARBON DIOXIDE 33 mEq/l (22-31); CHLORIDE 92 mEq/L (97-110); GLOMERULAR FILTRATION RATE 57; GLUCOSE 78 mg/dL (70-100); POTASSIUM 4.2 mEq/L (3.5-5.2); SODIUM 133 mEq/L (134-144)
[2016-11-14] MEDS ORDERED: HYDROmorphONE/DILAUDID 1 MG/ML SYR IVP PRN (11:17)
[2016-11-14] MEDS ORDERED: oxyCODONE IR 5 MG TAB PO PRN (11:23)
[2016-11-14] MEDS ORDERED: NS 500 ML IV ONE (11:41)
[2016-11-14] MEDS: FERROUS SULFATE 140 MG TAB.ER PO SCH (12:47)
[2016-11-14] MEDS: D5W 1/2 NS W/ 20 KCl/L 1,000 ML IV SCH ×2 (13:40→21:37)
[2016-11-14] MEDS ORDERED: ACETAMINOPHEN 325 MG TAB PO SCH (14:00)
[2016-11-14] MEDS: ACETAMINOPHEN 500 MG TAB PO SCH ×3 (14:16→21:36)
[2016-11-14] MEDS: DOCUSATE SODIUM 100 MG CAP PO SCH (21:36)
[2016-11-15] MEDS: ACETAMINOPHEN 500 MG TAB PO SCH ×6 (02:41→21:06)
[2016-11-15 05:02] LABS: % IMMATURE GRANULYOCYTES 0.8 % (0.0-1.1); ABSOLUTE IMMATURE GRANULOCYTES 0.07 10^3/uL (0.00-0.10); ADD DIFF? NO; ADD MORPH? NO; ADD SCAN? NO; ATYPICAL LYMPHOCYTE FLAG 20 (0-99); FRAGMENT RBC FLAG 0 (0-99); HEMATOCRIT 31.1 % (38.0-47.0); HEMOGLOBIN 10.8 g/dL (12.6-16.3); LEFT SHIFT FLG 0 (0-99); LIPEMIA HEMOLYSIS FLAG 90 (0-99); MEAN CELL HEMOGLOBIN CONCENTR. 34.7 g/dL (32.4-36.7); MEAN CELL VOLUME 95.1 fL (81.5-99.8); PLATELET CLUMPS FLAG 0 (0-99); PLATELET COUNT 260 10^3/uL (150-400); RED BLOOD CELL COUNT 3.27 10^6/uL (4.18-5.33); RED CELL DISTRIBUTION WIDTH 12.7 % (11.5-15.2)
[2016-11-15 05:16] LABS: ANION GAP 6 mEq/L (8-16); CALCIUM 8.4 mg/dL (8.5-10.4); CARBON DIOXIDE 23 mEq/l (22-31); CHLORIDE 105 mEq/L (97-110); CREATININE 1.2 mg/dL (0.6-1.0); GLOMERULAR FILTRATION RATE 46; GLUCOSE 115 mg/dL (70-100); POTASSIUM 4.6 mEq/L (3.5-5.2); SODIUM 134 mEq/L (134-144)
[2016-11-15] MEDS: ACYCLOVIR 600 MG in D5W 100 ML IV SCH ×3 (05:48→21:08)
[2016-11-15] MEDS: levETIRAcetam 500 MG TAB PO SCH ×2 (08:49→21:07)
[2016-11-15] MEDS: DOCUSATE SODIUM 100 MG CAP PO SCH ×2 (08:49→21:08)
[2016-11-15] MEDS: FERROUS SULFATE 140 MG TAB.ER PO SCH (08:50)
[2016-11-15] MEDS: ENOXAPARIN 40 MG/0.4 ML SYR SC SCH (08:51)
[2016-11-15] MEDS: D5W 1/2 NS W/ 20 KCl/L 1,000 ML IV SCH (11:42)
[2016-11-15] MEDS ORDERED: ALTEPLASE 2 MG VIAL IVP PRN (12:32)
--- NOTE | 2016-11-15 14:05 | HOSPPROG ---
Hospitalist Progress Note Assessment/Plan: Patient is a 56-year-old female who has a history of rheumatoid arthritis on immunosuppressive therapy who presented to the emergency room with acute encephalitis. At home she developed a headache which was followed by nausea and vomiting. Her noticed that she had a tonic-clonic seizure and called 911. When the paramedics arrived they noted that the patient was likely seizing. She was admitted for further evaluation. She had a lumbar puncture performed and an MRI was performed in addition. The MRI of the brain was concerning for herpes encephalitis. She was empirically started on high-dose acyclovir, vancomycin and ceftriaxone. Today during my evaluation she is much improved per her . Today is my 1st encounter with the patient. Chart reviewed. Discussed her care with Dr. Love. 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, confirmed by CSF improving overall s/p Sz, continue keppra MRI brain shows temporal lobe inflammation on the right as well as frontal IV acyclovir, transition to PO and length of treatment per ID, discussed with Dr Love serum west Nile antibodies negative, VZV pending PICC ordered inpatient rehab consult ordered # Rheumatoid arthritis receiving immuno modulators in the outpatient setting, [facility] # acute hyponatremia Na better will trial off IVF # normocytic anemia and iron deficiency anemia f/u with her PCP Dr Lemus # Mild hypocalcemia resolved #Headache: suspect this is secondary from the inflammation, no sxs of spinal ABDI change pain meds, trial toradol encouraged fluids, caffeine if able #Hypotension resolved # DVT prophylaxis lovenox PCP Dr Lemus FULL CODE DISPO- anticipate > 2 mdnts for IV acyclovir, symptom management Inpatient rehab eval Subjective: Up in bed. at bedside. Pt without complaints. Objective: Vital Signs Temp Pulse Resp BP Pulse Ox 36.8 C 63 20 169/86 H 98 11/15/16 11:48 11/15/16 11:48 11/15/16 11:48 11/15/16 11:48 11/15/16 11:48 Laboratory Results 11/15/16 04:52 11/15/16 04:52 11/14/16 11/15/16 11/16/16 05:59 05:59 05:59 Intake Total 275 250 Output Total 2450 1700 925 Balance -2175 -1450 -925 PT 15.6 SEC (12.0-15.0) H 11/10/16 17:10 INR 1.24 (0.83-1.16) H 11/10/16 17:10 - Physical Exam Constitutional: appears nourished, not in pain, chronically ill appearing Eyes: PERRL, anicteric sclera, EOMI Ears, Nose, Mouth, Throat: moist mucous membranes, hearing normal, ears appear normal Cardiovascular: regular rate and rhythym, No JVD, No edema Respiratory: no respiratory distress, no rales or rhonchi, clear to auscultation Gastrointestinal: normoactive bowel sounds, No tenderness, No ascites Skin: warm, normal color, No erythema Musculoskeletal: normal joint ROM, no joint effusions, generalized weakness Psychiatric: not anxious, not encephalopathic, poor insight, poor judgement, poor memory ICD10 Worksheet Patient Problems: Problems Problem Status Onset Encephalitis Acute Cat bite of left wrist Acute Cellulitis Acute
--- NOTE | 2016-11-15 17:12 | PCMIDPN ---
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 Patient is clinically recovering which is wonderful. She continues to have a headache which does not seem to be positional. Likely secondary to primary process. Patient has been receiving IV acyclovir at central nervous system dosing levels. This was started at admission. At this point we will continue the IV acyclovir at current dose for a total of 4 weeks. Patient will need to be on chronic oral Valtrex suppression given the clear need for immunosuppression going forward for treatment of her rheumatoid arthritis. Plan: 1. Continue IV acyclovir current dose. 2. Watch creatinine on acyclovir. 3. follow-up clinical improvement. Encourage PT OT. Have patient evaluated by inpatient rehab. 11/15/16 17:11 Subjective: The patient seems to still have some significant cognitive delay. She is resting in her hospital bed and can answer questions appropriately but is not very conversant. Objective: IV acyclovir # 5 Vital Signs Temp Pulse Resp BP Pulse Ox 37.2 C 71 20 148/87 H 94 11/15/16 15:38 11/15/16 15:38 11/15/16 15:38 11/15/16 15:38 11/15/16 15:38 Laboratory Results 11/15/16 04:52 11/15/16 04:52 11/14/16 11/15/16 11/16/16 05:59 05:59 05:59 Intake Total 275 250 Output Total 2450 1700 1825 Balance -3407 -3096 -8775 - Physical Exam General Appearance: WD/WN, alert, no apparent distress, thin, non-toxic Respiratory: lungs clear, normal breath sounds, No respiratory distress Cardiac/Chest: regular rate, rhythm, No tachycardia Skin: normal color, warm/dry, No rash Neuro/Psych: no motor/sensory deficits, alert, No normal mood/affect (Flat affect with cognitive delay.) ICD10 Worksheet Patient Problems: Problems Problem Status Onset Encephalitis Acute Cat bite of left wrist Acute Cellulitis Acute
[2016-11-16] MEDS: ACETAMINOPHEN 500 MG TAB PO SCH ×6 (02:29→21:36)
[2016-11-16 05:33] LABS: ANION GAP 6 mEq/L (8-16); CALCIUM 8.4 mg/dL (8.5-10.4); CARBON DIOXIDE 27 mEq/l (22-31); CHLORIDE 104 mEq/L (97-110); CREATININE 0.9 mg/dL (0.6-1.0); GLOMERULAR FILTRATION RATE > 60; GLUCOSE 97 mg/dL (70-100); POTASSIUM 4.1 mEq/L (3.5-5.2); SODIUM 137 mEq/L (134-144)
[2016-11-16] MEDS: ACYCLOVIR 600 MG in D5W 100 ML IV SCH ×3 (06:06→21:37)
[2016-11-16] MEDS: ENOXAPARIN 40 MG/0.4 ML SYR SC SCH (08:47)
[2016-11-16] MEDS: FERROUS SULFATE 140 MG TAB.ER PO SCH (08:49)
[2016-11-16] MEDS: levETIRAcetam 500 MG TAB PO SCH ×2 (08:49→20:13)
[2016-11-16] MEDS: DOCUSATE SODIUM 100 MG CAP PO SCH ×2 (08:49→20:13)
--- NOTE | 2016-11-16 09:36 | PCMIDPN ---
Assessment/Plan: 1. HSV encephalitis: Very stable clinically; I am amazed at her cognitive ability in the setting of this disease. Continue acyclovir as is for 4 weeks, and then Valtrex 1 g p. o. twice daily thereafter for chronic suppression as outlined by my colleague, Dr. Love. Hopefully, patient can go to inpatient rehab, which would be the best for her. Creatinine better at 0.9. (Was elevated yesterday) Subjective: Very tired. Family present in room. Knows where she is and why she is here. Tells me that her is at the [employer] buying her peaches and lemonade. Objective: Acyclovir 600 mg IV q8 d6 T-max 37.3degrees Vital Signs Temp Pulse Resp BP Pulse Ox 37.1 C 67 12 124/69 H 97 11/16/16 08:00 11/16/16 08:00 11/16/16 08:00 11/16/16 08:00 11/16/16 08:00 Laboratory Results 11/15/16 04:52 11/16/16 04:55 11/15/16 11/16/16 11/17/16 05:59 05:59 05:59 Intake Total 250 600 Output Total 1700 0069 Balance -4242 -0186 - Physical Exam General Appearance: other (Thin, very tired, no apparent distress) EENT: No scleral icterus, No thrush Respiratory: lungs clear Cardiac/Chest: regular rate, rhythm Neuro/Psych: depressed affect, No sensory deficit ICD10 Worksheet Patient Problems: Problems Problem Status Onset Encephalitis Acute Cat bite of left wrist Acute Cellulitis Acute
--- NOTE | 2016-11-16 10:33 | HOSPPROG ---
Hospitalist Progress Note Assessment/Plan: Patient is a 56-year-old female who has a history of rheumatoid arthritis on immunosuppressive therapy who presented to the emergency room with acute encephalitis. At home she developed a headache which was followed by nausea and vomiting. Her noticed that she had a tonic-clonic seizure and called 911. When the paramedics arrived they noted that the patient was likely seizing. She was admitted for further evaluation. She had a lumbar puncture performed and an MRI was performed in addition. The MRI of the brain was concerning for herpes encephalitis. She was empirically started on high-dose acyclovir, vancomycin and ceftriaxone. Today during my evaluation she is much improved per her . 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 o. twice daily thereafter for chronic suppression serum west Nile antibodies negative, VZV pending PICC placed inpatient rehab consult ordered # Rheumatoid arthritis receiving immuno modulators in the outpatient setting, [facility] # acute hyponatremia Na better will trial off IVF # LAVELLE Creatinine better at 0.9. (Was elevated yesterday) # normocytic anemia and iron deficiency anemia f/u with her PCP Dr Lemus # Mild hypocalcemia resolved #Headache: suspect this is secondary from the inflammation, no sxs of spinal ABDI change pain meds encouraged fluids, caffeine if able #Hypotension resolved # Nutrition poor PO intake encourage, family # DVT prophylaxis lovenox PCP Dr Lemus FULL CODE DISPO- anticipate > 2 mdnts for IV acyclovir, symptom management Inpatient rehab eval Subjective: In bed. Minimal interaction. Family at bedside. Objective: Vital Signs Temp Pulse Resp BP Pulse Ox 37.1 C 67 12 124/69 H 97 11/16/16 08:00 11/16/16 08:00 11/16/16 08:00 11/16/16 08:00 11/16/16 08:00 Laboratory Results 11/15/16 04:52 11/16/16 04:55 11/15/16 11/16/16 11/17/16 05:59 05:59 05:59 Intake Total 250 600 Output Total 1700 2725 Balance -1450 -2125 PT 15.6 SEC (12.0-15.0) H 11/10/16 17:10 INR 1.24 (0.83-1.16) H 11/10/16 17:10 - Physical Exam Constitutional: appears nourished, not in pain, chronically ill appearing Eyes: PERRL, anicteric sclera, EOMI Ears, Nose, Mouth, Throat: moist mucous membranes, hearing normal, ears appear normal Cardiovascular: regular rate and rhythym, No JVD, No edema Respiratory: no respiratory distress, no rales or rhonchi, reduced air movement Gastrointestinal: normoactive bowel sounds, No tenderness, No ascites Skin: warm, normal color, No erythema Musculoskeletal: normal joint ROM, no joint effusions, generalized weakness Psychiatric: not anxious, not encephalopathic, poor insight, poor memory ICD10 Worksheet Patient Problems: Problems Problem Status Onset Cellulitis Acute Cat bite of left wrist Acute Encephalitis Acute
[2016-11-17] MEDS: ACETAMINOPHEN 500 MG TAB PO SCH ×6 (02:38→20:57)
[2016-11-17] MEDS: ACYCLOVIR 600 MG in D5W 100 ML IV SCH ×3 (05:40→20:57)
--- NOTE | 2016-11-17 09:52 | PCMIDPN ---
Assessment/Plan: 1. HSV encephalitis: Very stable clinically; I am amazed at her cognitive ability in the setting of this disease. Continue acyclovir as is for 4 weeks, and then Valtrex 1 g p. o. twice daily thereafter for chronic suppression as outlined by my colleague, Dr. Love. Hopefully, patient can go to inpatient rehab, which would be the best for her. Repeat basic metabolic panel tomorrow. 2. Nutrition: Patient is really not eating. Denies nausea. Will consult nutrition. Needs calorie counts, etc. Subjective: Got up and walked to the end of the russ by herself yesterday! Denies nausea or vomiting. Appetite remains poor, however. Only ate some peaches and drink lemonade yesterday. Continues to have a headache in the right temporal area. No blurred vision, tinnitus or other. Objective: Acyclovir 600 mg IV q.8 hours day 7. T-max 37.3degrees Vital Signs Temp Pulse Resp BP Pulse Ox 36.8 C 61 14 119/65 96 11/17/16 08:00 11/17/16 08:00 11/17/16 08:00 11/17/16 08:00 11/17/16 08:00 Laboratory Results 11/15/16 04:52 11/16/16 04:55 11/16/16 11/17/16 11/18/16 05:59 05:59 05:59 Intake Total 600 Output Total 0334 7834 Balance -2125 -2453 Laboratory Tests 11/11/16 11/16/16 10:30 04:55 Creatinine 0.9 West Nile Virus IgG Ab Negative West Nile Virus IgM Ab Negative - Physical Exam General Appearance: thin, other (Appears tired.) EENT: pharynx normal, No scleral icterus, No thrush Respiratory: lungs clear Cardiac/Chest: regular rate, rhythm Extremities: other (PICC line right upper extremity looks fine.) Abdomen: non-tender, soft Skin: No rash Neuro/Psych: other (Tired, but oriented x3. Abstract thinking intact ( understands what "tip of the iceberg" means.) Moving all 4 extremities. No sensory deficits.) ICD10 Worksheet Patient Problems: Problems Problem Status Onset Encephalitis Acute Cat bite of left wrist Acute Cellulitis Acute
--- NOTE | 2016-11-17 11:07 | HOSPPROG ---
Hospitalist Progress Note Assessment/Plan: Patient is a 56-year-old female who has a history of rheumatoid arthritis on immunosuppressive therapy who presented to the emergency room with acute encephalitis. At home she developed a headache which was followed by nausea and vomiting. Her noticed that she had a tonic-clonic seizure and called 911. When the paramedics arrived they noted that the patient was likely seizing. She was admitted for further evaluation. She had a lumbar puncture performed and an MRI was performed in addition. The MRI of the brain was concerning for herpes encephalitis. She was empirically started on high-dose acyclovir, vancomycin and ceftriaxone. 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 o. twice daily thereafter for chronic suppression serum west Nile antibodies negative, VZV pending PICC placed inpatient rehab consult ordered # Rheumatoid arthritis receiving immuno modulators in the outpatient setting, [facility] # acute hyponatremia Na better will trial off IVF #SZ on Keppra will D/W neurology # LAVELLE Creatinine better at 0.9. (Was elevated yesterday) # normocytic anemia and iron deficiency anemia f/u with her PCP Dr Lemus # Mild hypocalcemia resolved #Headache: suspect this is secondary from the inflammation, no sxs of spinal ABDI encouraged fluids low stim environment #Hypotension resolved # Nutrition poor PO intake encourage, family dietary consult # DVT prophylaxis lovenox PCP Dr Lemus FULL CODE DISPO- anticipate > 2 mdnts for IV acyclovir, symptom management Inpatient rehab eval Subjective: No complaints. No verbal interaction with me. Objective: Vital Signs Temp Pulse Resp BP Pulse Ox 36.8 C 61 14 119/65 96 11/17/16 08:00 11/17/16 08:00 11/17/16 08:00 11/17/16 08:00 11/17/16 08:00 Laboratory Results 11/15/16 04:52 11/16/16 04:55 11/16/16 11/17/16 11/18/16 05:59 05:59 05:59 Intake Total 600 Output Total 1615 2450 Balance -2125 -2450 PT 15.6 SEC (12.0-15.0) H 11/10/16 17:10 INR 1.24 (0.83-1.16) H 11/10/16 17:10 - Physical Exam Constitutional: chronically ill appearing, uncomfortable Eyes: PERRL, anicteric sclera, EOMI Ears, Nose, Mouth, Throat: moist mucous membranes, hearing normal, ears appear normal Cardiovascular: regular rate and rhythym, No JVD, No edema Respiratory: no respiratory distress, no rales or rhonchi, reduced air movement Gastrointestinal: normoactive bowel sounds, No tenderness, No ascites Skin: warm, normal color Musculoskeletal: no joint effusions, generalized weakness Psychiatric: not anxious, poor insight, poor judgement, poor memory ICD10 Worksheet Patient Problems: Problems Problem Status Onset Cellulitis Acute Cat bite of left wrist Acute Encephalitis Acute
[2016-11-17] MEDS: levETIRAcetam 500 MG TAB PO SCH ×2 (11:25→20:57)
[2016-11-17] MEDS: DOCUSATE SODIUM 100 MG CAP PO SCH ×2 (11:25→20:57)
[2016-11-17] MEDS: FERROUS SULFATE 140 MG TAB.ER PO SCH (11:26)
[2016-11-17] MEDS: ENOXAPARIN 40 MG/0.4 ML SYR SC SCH (11:28)
[2016-11-18] MEDS: ACETAMINOPHEN 500 MG TAB PO SCH ×6 (02:35→21:49)
[2016-11-18 03:27] LABS: ANION GAP 9 mEq/L (8-16); CALCIUM 8.7 mg/dL (8.5-10.4); CARBON DIOXIDE 27 mEq/l (22-31); CHLORIDE 100 mEq/L (97-110); CREATININE 0.7 mg/dL (0.6-1.0); GLOMERULAR FILTRATION RATE > 60; GLUCOSE 95 mg/dL (70-100); POTASSIUM 3.7 mEq/L (3.5-5.2); SODIUM 136 mEq/L (134-144)
[2016-11-18] MEDS: ACYCLOVIR 600 MG in D5W 100 ML IV SCH ×3 (06:26→21:48)
[2016-11-18] MEDS: DOCUSATE SODIUM 100 MG CAP PO SCH ×2 (11:42→21:49)
[2016-11-18] MEDS: FERROUS SULFATE 140 MG TAB.ER PO SCH (11:42)
[2016-11-18] MEDS: levETIRAcetam 500 MG TAB PO SCH ×2 (11:43→21:49)
[2016-11-18] MEDS: ENOXAPARIN 40 MG/0.4 ML SYR SC SCH (11:44)
--- NOTE | 2016-11-18 11:49 | PCMIDPN ---
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 Patient is clinically recovering which is wonderful. She continues to have a headache which does not seem to be positional. Likely secondary to primary process. Patient has been receiving IV acyclovir at central nervous system dosing levels. This was started at admission. At this point we will continue the IV acyclovir at current dose for a total of 4 weeks. Patient will need to be on chronic oral Valtrex suppression given the clear need for immunosuppression going forward for treatment of her rheumatoid arthritis. Patient continues to have a positional headache. I think it is reasonable at this point to pursue a blood patch. Plan: 1. Continue IV acyclovir current dose. 2. Watch creatinine on acyclovir. 3. follow-up clinical improvement. Encourage PT OT. Have patient evaluated by inpatient rehab. 4. Blood patch. 11/15/16 17:11 11/18/16 18:16 Subjective: Patient is resting in her hospital bed she still feels like she has an ongoing headache. She states it is much worse when she is standing erect or sitting up. Objective: Acyclovir # 6 Vital Signs Temp Pulse Resp BP Pulse Ox 36.9 C 72 16 119/65 96 11/18/16 08:00 11/18/16 08:00 11/18/16 08:00 11/18/16 08:00 11/18/16 08:00 Laboratory Results 11/15/16 04:52 11/18/16 03:10 11/17/16 11/18/16 11/19/16 05:59 05:59 05:59 Intake Total 914 Output Total 4762 1300 Balance -2450 -316 - Physical Exam General Appearance: WD/WN, alert, no apparent distress, thin, non-toxic Respiratory: lungs clear, normal breath sounds, No respiratory distress Cardiac/Chest: regular rate, rhythm, No tachycardia Skin: normal color, warm/dry, No rash Neuro/Psych: alert, normal mood/affect, oriented x 3 ICD10 Worksheet Patient Problems: Problems Problem Status Onset Encephalitis Acute Cat bite of left wrist Acute Cellulitis Acute
--- NOTE | 2016-11-18 14:38 | HOSPPROG ---
Hospitalist Progress Note Assessment/Plan: Patient is a 56-year-old female who has a history of rheumatoid arthritis on immunosuppressive therapy who presented to the emergency room with acute encephalitis. At home she developed a headache which was followed by nausea and vomiting. Her noticed that she had a tonic-clonic seizure and called 911. When the paramedics arrived they noted that the patient was likely seizing. She was admitted for further evaluation. She had a lumbar puncture performed and an MRI was performed in addition. The MRI of the brain was concerning for herpes encephalitis. She was empirically started on high-dose acyclovir, vancomycin and ceftriaxone. 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 o. twice daily thereafter for chronic suppression serum west Nile antibodies negative, VZV pending PICC placed inpatient rehab consult ordered # Rheumatoid arthritis receiving immuno modulators in the outpatient setting, [facility] # acute hyponatremia Na better will trial off IVF #SZ on Keppra will D/W neurology neurology consult pending # LAVELLE Creatinine better # normocytic anemia and iron deficiency anemia f/u with her PCP Dr Lemus # Mild hypocalcemia resolved #Headache: possible CSF leak D/W [facility] blood patch ordered encouraged fluids low stim environment #Hypotension resolved # Nutrition poor PO intake encourage, family dietary consult # DVT prophylaxis lovenox PCP Dr Lemus FULL CODE DISPO- anticipate > 2 mdnts for IV acyclovir, symptom management Inpatient rehab insurance auth pending blood patch neurology consult IC acyclovir x4 weeks Subjective: Still tired with significant headache. Eating a bit. Objective: Vital Signs Temp Pulse Resp BP Pulse Ox 36.8 C 63 16 146/78 H 98 11/18/16 11:58 11/18/16 11:58 11/18/16 11:58 11/18/16 11:58 11/18/16 11:58 Laboratory Results 11/15/16 04:52 11/18/16 03:10 11/17/16 11/18/16 11/19/16 05:59 05:59 05:59 Intake Total 914 Output Total 2450 1300 Balance -2450 -386 PT 15.6 SEC (12.0-15.0) H 08/20/17 17:10 INR 1.24 (0.83-1.16) H 11/10/16 17:10 - Physical Exam Constitutional: no apparent distress, uncomfortable, cachectic Eyes: PERRL, anicteric sclera, EOMI Ears, Nose, Mouth, Throat: moist mucous membranes, hearing normal, ears appear normal Cardiovascular: regular rate and rhythym, No JVD, No edema Respiratory: no respiratory distress, no rales or rhonchi, reduced air movement Gastrointestinal: No tenderness, No ascites, No guarding Skin: warm, normal color, No erythema Musculoskeletal: normal joint ROM, no joint effusions, generalized weakness Psychiatric: not anxious, not encephalopathic, poor insight, poor judgement, poor memory ICD10 Worksheet Patient Problems: Problems Problem Status Onset Cellulitis Acute Cat bite of left wrist Acute Encephalitis Acute
[2016-11-18] MEDS ORDERED: IOPAMIDOL (ISOVUE-M 300) 15 ML VIAL ONE (16:12)
--- NOTE | 2016-11-19 02:55 | GCON ---
[f rep st] CONSULTATION NEUROLOGIC CONSULTATION REFERRING PHYSICIAN: Mia Tellez NP HISTORY: The patient is a 56-year-old woman whom I am asked to see in neurologic consultation for management of headaches and issues related to HSV1 encephalitis, which has been diagnosed after presentation to the hospital about 8 days ago. Details of the history are in the admission History and Physical, and I have reviewed that as well as the consultations with Infectious Disease. The patient presented with seizure, altered mental status and fever, abnormal MRI and subsequent abnormal CSF. She is on acyclovir therapy and within just a few days, started to have significant improvement in her mental state and has been conversant for the last 5-6 days. She is complaining of rather intractable headache which she describes as 10/10 when lying down and 100 when she is sitting up. It causes associated light sensitivity and pain with movement and sound sensitivity. Despite various treatment attempts with narcotic and nonnarcotic medications, she is not getting any significant relief. Because of the component of increased pain when sitting up, a blood patch was performed today. I have been subsequently consulted for further input. She just had the blood patch an hour ago, and is not noticing any improvement yet, although family said she initially was feeling a little bit better, and then said it was no longer any different. She does not have any other focal neurologic complaints. PHYSICAL EXAM: VITAL SIGNS: The blood pressure is 146/78, pulse of 63, respirations 16, temperature 36.8. GENERAL: She is lying in the room which is darkened, with her eyes closed. Initially had a towel over her eyes. I removed that, and she was able to open her eyes with some squinting, and did say she felt light sensitivity. We could communicate with a very soft voice, and she is oriented and able to answer questions and express herself in a logical fashion, although she does not speak very much because of the discomfort she is having. One of her principal concerns is being on her immunosuppressant medications for her rheumatoid arthritis. NEUROLOGIC: Pupils are about 2 mm and reactive. Extraocular movements are intact. Her neck is not stiff. Normal facial sensation and movement. [employer] strength. I did not put her through more vigorous neurologic examination in the short-term , but we will follow up more as she feels better. Her current white count is 9000, chemistries normal. Previous CSF shown 17 white cells, 67 red cells, predominantly lymphocytes. She has positive HSV1 PCR. Negative West Nile. The brain MRI from November 10 was also reviewed. She had restricted diffusion in right temporal lobe anterior and medially. IMPRESSION: Herpes simplex virus-1 encephalitis with seizures, which are under control currently on Keppra. She has rather severe headaches supine, which are even worse when she is upright, suggesting there could have been a component of low-pressure headache. Unfortunately, that is not specific and pain could be worse just from being upright without there necessarily being a cerebrospinal fluid leak, but I agree with the blood patch and we will see if that helps her overnight. We can then consider other potential ways to help, although this can be extremely refractory to treatment and the consequences of interventions will always have to be weighed in terms of risks and benefits. Toradol may very well be an option and is not considered to be high risk medication, even in the use of acyclovir, but we will have discussions about that before actually implementing such therapy, if that is the #1 choice. We might also consider more medications that can have an effect on central sensitization such as Benadryl or gabapentin. I had a detailed discussion with the patient's and her parents were in the room, and the patient herself, and answered as many questions as I could. I will continue to follow along with you to see if we can help bring down the pain, with time being the most important factor and resolution of the infection leading to improvements. With regard to decisions on ongoing immunosuppression and management of the rheumatoid arthritis, that will need to be further discussed with her treating licensed mental health professional, again, weighing the risks and benefits of what we are currently doing with antibiotic therapy in controlling this viral encephalitis, and likewise trying to prevent a significant flare-up of rheumatoid arthritis. We will also review this with Infectious Disease. Total unit time: 70 minutes /[id number]/MODL MTDD
[2016-11-19] MEDS: ACETAMINOPHEN 500 MG TAB PO SCH ×6 (03:07→21:59)
[2016-11-19] MEDS: ACYCLOVIR 600 MG in D5W 100 ML IV SCH ×3 (06:09→22:00)
--- NOTE | 2016-11-19 08:33 | HOSPPROG ---
Hospitalist Progress Note Assessment/Plan: Patient is a 56-year-old female who has a history of rheumatoid arthritis on immunosuppressive therapy who presented to the emergency room with acute encephalitis. At home she developed a headache which was followed by nausea and vomiting. Her noticed that she had a tonic-clonic seizure and called 911. When the paramedics arrived they noted that the patient was likely seizing. She was admitted for further evaluation. She had a lumbar puncture performed and an MRI was performed in addition. The MRI of the brain was concerning for herpes encephalitis. She was empirically started on high-dose acyclovir, vancomycin and ceftriaxone. Reviewed her care with Dr Quinonez. 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 o. twice daily thereafter for chronic suppression serum west Nile antibodies negative PICC placed inpatient rehab consult ordered # Rheumatoid arthritis receiving immuno modulators in the outpatient setting, [facility] not resuming at this time # acute hyponatremia resolved #SZ on Keppra # LAVELLE Creatinine better # normocytic anemia and iron deficiency anemia f/u with her PCP Dr Lemus # Mild hypocalcemia resolved #Headache: possible CSF leak/s/p patch no relief w blood patch/ headache worsens w standing trial of Decadron x 1/asked RN to let me know if she gets any relief with this encouraged fluids low stim environment #Hypotension resolved # Nutrition poor PO intake encourage, family # DVT prophylaxis lovenox Plan: trial of Decadron, if this helps, will continue. If this does not/? if we should retry a blood patch. Subjective: Karis has c/o persistent headache/ doesn't go away and worsens with any activity. Objective: Vital Signs Temp Pulse Resp BP Pulse Ox 37.2 C 76 16 102/58 L 94 11/19/16 07:44 11/19/16 07:44 11/19/16 07:44 11/19/16 07:44 11/19/16 07:44 Laboratory Results 11/15/16 04:52 11/18/16 03:10 11/18/16 11/19/16 11/20/16 05:59 05:59 05:59 Intake Total 914 Output Total 1300 2500 Balance -386 -2500 PT 15.6 SEC (12.0-15.0) H 11/10/16 17:10 INR 1.24 (0.83-1.16) H 11/10/16 17:10 - Physical Exam Constitutional: uncomfortable, No not in pain Eyes: PERRL Ears, Nose, Mouth, Throat: hearing normal Cardiovascular: regular rate and rhythym Respiratory: no respiratory distress Gastrointestinal: normoactive bowel sounds Skin: warm Musculoskeletal: no muscle tenderness Neurologic: AAOx3 Psychiatric: interacting appropriately, flat affect ICD10 Worksheet Patient Problems: Problems Problem Status Onset Encephalitis Acute Cat bite of left wrist Acute Cellulitis Acute
[2016-11-19] MEDS: DOCUSATE SODIUM 100 MG CAP PO SCH ×2 (09:18→21:59)
[2016-11-19] MEDS: levETIRAcetam 500 MG TAB PO SCH ×2 (09:18→22:00)
[2016-11-19] MEDS: FERROUS SULFATE 140 MG TAB.ER PO SCH (09:18)
[2016-11-19] MEDS: ENOXAPARIN 40 MG/0.4 ML SYR SC SCH (09:21)
[2016-11-19] MEDS ORDERED: DEXAMETHASONE 4 MG/ML VIAL IVP ONE (09:53)
--- NOTE | 2016-11-19 10:58 | NEUROPROG ---
Assessment: I am not sure if there is any component of low-pressure headache syndrome from lumbar puncture. 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 We are going to give her a trial of some Decadron and see if that might help. Pursuing more complex and often very equivocal studies for a CSF leak does not seem warranted in the short-term. However, we will continue to consider how best to approach her case from day-to-day depending on her clinical course and response to various interventions. Today's total unit time was 25 minutes. I reviewed the case with Jessica Vega. Subjective: The patient says that her headache continues to be 10/10 when she is lying down with light sensitivity and no other improvements. There is no improvement after the blood patch in terms of sitting up or walking. Essentially, nothing has changed in the last 12 hours. Objective: Vital Signs Temp Pulse Resp BP Pulse Ox 37.2 C 76 16 102/58 L 94 11/19/16 07:44 11/19/16 07:44 11/19/16 07:44 11/19/16 07:44 11/19/16 07:44 Laboratory Results 11/15/16 04:52 11/18/16 03:10 11/18/16 11/19/16 11/20/16 05:59 05:59 05:59 Intake Total 914 Output Total 1300 2500 Balance -386 -2500 PT 15.6 SEC (12.0-15.0) H 11/10/16 17:10 INR 1.24 (0.83-1.16) H 11/10/16 17:10 She is awake and lethargic but able to communicate effectively and does not appear to be in acute distress but says she clearly is hurting severely. Allergies/Adverse Reactions: Penicillins Allergy (Verified 11/10/16 17:22) Sulfa (Sulfonamide Antibiotics) Allergy (Verified 11/12/15 21:12)
--- NOTE | 2016-11-19 14:11 | PCMIDPN ---
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 -Care coordinated with hospitalist team and RN micro blood cx ngtd meds acyclovir 600mg IV q8- 11/12/16 (previously on 700mg q8-11/11/16)---D#9 Subjective: afebrile. continues with headaches. laying down. no improvement after blood patch. denies vision changes, neck stiffness, sob, abd pain or diarrhea. not eating much. is taking in fluids. Mom/DAD at bedside. Objective: Vital Signs Temp Pulse Resp BP Pulse Ox 37.1 C 69 16 113/63 96 11/19/16 11:18 11/19/16 11:18 11/19/16 11:18 11/19/16 11:18 11/19/16 11:18 Laboratory Results 11/15/16 04:52 11/18/16 03:10 11/18/16 11/19/16 11/20/16 05:59 05:59 05:59 Intake Total 914 Output Total 1300 2500 Balance -386 -2500 - Physical Exam General Appearance: alert, no apparent distress Respiratory: lungs clear Cardiac/Chest: regular rate, rhythm Extremities: No swelling Abdomen: normal bowel sounds, non-tender, soft, No distended Skin: No rash ICD10 Worksheet Patient Problems: Problems Problem Status Onset Encephalitis Acute Cat bite of left wrist Acute Cellulitis Acute
[2016-11-19] MEDS ORDERED: KETOROLAC 30 MG/1 ML SDV IVP ONE (14:30)
[2016-11-19] MEDS ORDERED: NS 1,000 ML IV SCH (14:30)
--- NOTE | 2016-11-19 15:01 | ASMTCMCOM ---
CM Note CM Note Notes: Spoke w/RN re; dc to inpatient rehab. Pt has severe head pain, not able to dc to rehab, Riri not ified. CM to let Riri know when pt is ready as she will need to reauthorize with patient's insurance. ALFA w/f Date Signed: 11/19/2016 03:00 PM Electronically Signed By:Sruthi Chapman
[2016-11-20] MEDS: ACETAMINOPHEN 500 MG TAB PO SCH ×6 (02:42→21:17)
[2016-11-20] MEDS: ACYCLOVIR 600 MG in D5W 100 ML IV SCH ×3 (06:15→21:17)
[2016-11-20 06:56] LABS: ALANINE AMINOTRANSFERASE 54 IU/L (9-52); ALBUMIN 2.9 g/dL (3.5-5.0); ALKALINE PHOSPHATASE 36 IU/L (38-126); ANION GAP 7 mEq/L (8-16); ASPARTATE AMINOTRANSFERASE 37 IU/L (14-46); BILIRUBIN,TOTAL 0.5 mg/dL (0.1-1.4); CALCIUM 8.6 mg/dL (8.5-10.4); CARBON DIOXIDE 24 mEq/l (22-31); CHLORIDE 104 mEq/L (97-110); CREATININE 1.1 mg/dL (0.6-1.0); GLOMERULAR FILTRATION RATE 51; GLUCOSE 90 mg/dL (70-100); POTASSIUM 3.9 mEq/L (3.5-5.2); SODIUM 135 mEq/L (134-144); TOTAL PROTEIN 5.2 g/dL (6.3-8.2)
[2016-11-20] MEDS: ENOXAPARIN 40 MG/0.4 ML SYR SC SCH (09:09)
--- NOTE | 2016-11-20 09:09 | NEUROPROG ---
Assessment: I am not sure if there is any component of low-pressure headache syndrome from lumbar puncture. 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 We are going to give her a trial of some Decadron and see if that might help. Pursuing more complex and often very equivocal studies for a CSF leak does not seem warranted in the short-term. However, we will continue to consider how best to approach her case from day-to-day depending on her clinical course and response to various interventions. Today's total unit time was 25 minutes. I reviewed the case with Jessica Vega. 11/20/16: HSV encephalits and severe headache. Feeling low pressure headache less likely than just the underlying condition. Toradol helped. Will continue 30mg IV daily doses up to BID but will not do more than 5 days total of therapy max. Will also start gabapentin 300mg BID. Pain is precluding going to rehab at this point. Discussed with family and hospitalist. Total unit time of 25 minutes. Subjective: Pt still having 10 pain supine but felt Toradol blocked the pain when up and family noted a major improvement after the dosing. Objective: Vital Signs Temp Pulse Resp BP Pulse Ox 36.8 C 67 12 115/69 92 11/20/16 08:00 11/20/16 08:00 11/20/16 08:00 11/20/16 08:00 11/20/16 08:00 Laboratory Results 11/15/16 04:52 11/20/16 06:20 11/19/16 11/20/16 11/21/16 05:59 05:59 05:59 Intake Total 1513 Output Total 2500 300 Balance -2500 1213 PT 15.6 SEC (12.0-15.0) H 11/10/16 17:10 INR 1.24 (0.83-1.16) H 11/10/16 17:10 Lethargic and able to communicate with no change in her interaction. Allergies/Adverse Reactions: Penicillins Allergy (Verified 11/10/16 17:22) Sulfa (Sulfonamide Antibiotics) Allergy (Verified 11/12/15 21:12)
[2016-11-20] MEDS: FERROUS SULFATE 140 MG TAB.ER PO SCH (09:11)
[2016-11-20] MEDS: levETIRAcetam 500 MG TAB PO SCH ×2 (09:11→20:44)
[2016-11-20] MEDS: DOCUSATE SODIUM 100 MG CAP PO SCH ×2 (09:11→20:44)
[2016-11-20] MEDS: KETOROLAC 30 MG/1 ML SDV IVP PRN (09:21)
[2016-11-20] MEDS: GABAPENTIN 300 MG CAP PO SCH ×2 (09:21→20:44)
--- NOTE | 2016-11-20 10:52 | HOSPPROG ---
Hospitalist Progress Note Assessment/Plan: Patient is a 56-year-old female who has a history of rheumatoid arthritis on immunosuppressive therapy who presented to the emergency room with acute encephalitis. At home she developed a headache which was followed by nausea and vomiting. Her noticed that she had a tonic-clonic seizure and called 911. When the paramedics arrived they noted that the patient was likely seizing. She was admitted for further evaluation. She had a lumbar puncture performed and an MRI was performed in addition. The MRI of the brain was concerning for herpes encephalitis. She was empirically started on high-dose acyclovir, vancomycin and ceftriaxone. Dr Quinonez and myself met with the patient and her family to discuss her care. 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 o. twice daily thereafter for chronic suppression serum west Nile antibodies negative PICC placed inpatient rehab consult ordered #Headache: possible CSF leak/s/p patch without relief no relief w Decadron poss relief w Toradol trial of gabapentin, prn Toradol # Rheumatoid arthritis receiving immuno modulators in the outpatient setting, [facility] not resuming at this time # acute hyponatremia resolved #SZ on Keppra none further # LAVELLE Creatinine at 1.1 /will monitor closely. # normocytic anemia and iron deficiency anemia f/u with her PCP Dr Lemus # Mild hypocalcemia resolved #Hypotension resolved # Nutrition poor PO intake # DVT prophylaxis lovenox Plan: cont calorie count, could go to IP rehab if headache pain decreases Subjective: Karis cont to have a headache w lying, sitting or standing. Objective: Vital Signs Temp Pulse Resp BP Pulse Ox 36.8 C 67 12 115/69 92 11/20/16 08:00 11/20/16 08:00 11/20/16 08:00 11/20/16 08:00 11/20/16 08:00 Laboratory Results 11/15/16 04:52 11/20/16 06:20 11/19/16 11/20/16 11/21/16 05:59 05:59 05:59 Intake Total 1513 Output Total 2500 300 Balance -2500 1213 PT 15.6 SEC (12.0-15.0) H 11/10/16 17:10 INR 1.24 (0.83-1.16) H 11/10/16 17:10 - Physical Exam Constitutional: uncomfortable, No not in pain Eyes: PERRL Ears, Nose, Mouth, Throat: hearing normal Cardiovascular: regular rate and rhythym Respiratory: no respiratory distress Gastrointestinal: normoactive bowel sounds Skin: warm Neurologic: AAOx3 Psychiatric: interacting appropriately, flat affect ICD10 Worksheet Patient Problems: Problems Problem Status Onset Encephalitis Acute Cat bite of left wrist Acute Cellulitis Acute
--- NOTE | 2016-11-20 17:40 | PCMIDPN ---
Assessment/Plan: Assessment/Plan: * HSV Encephalitis: Marked clinical improvement since time of admission. Persistent headache which did not respond to blood patch. May be related to ongoing CSF leak versus inflammation from encephalitis. Now on steroids to see if this has impact on symptoms. Continue acyclovir with anticipated 28 day course of therapy given underlying immunosuppression. Plan suppressive Valtrex thereafter. Continue to monitor creatinine with high-dose acyclovir and now also has received some Toradol both with potential for nephrotoxicity. 11/20/16 17:36 Subjective: Patient complains of headache. Headache radiates into lower neck and shoulder region. No improvement after blood patch 2 days ago. Work with speech therapy earlier today and describes doing difficult math problems. Objective: Vital Signs Temp Pulse Resp BP Pulse Ox 36.5 C 72 12 104/61 96 11/20/16 15:26 11/20/16 15:26 11/20/16 15:26 11/20/16 15:26 11/20/16 15:26 Laboratory Results 11/15/16 04:52 11/20/16 06:20 11/19/16 11/20/16 11/21/16 05:59 05:59 05:59 Intake Total 1513 Output Total 2500 300 Balance -2500 1213 Acyclovir # 8 - Physical Exam General Appearance: alert, no apparent distress EENT: No thrush Respiratory: lungs clear, No respiratory distress Neck: No meningismus Cardiac/Chest: regular rate, rhythm Abdomen: non-tender, No distended Neuro/Psych: other (Flat affect with at time slowed responses and distant appearance) ICD10 Worksheet Patient Problems: Problems Problem Status Onset Encephalitis Acute Cat bite of left wrist Acute Cellulitis Acute
[2016-11-21] MEDS: ACETAMINOPHEN 500 MG TAB PO SCH ×4 (01:57→14:21)
[2016-11-21] MEDS: ACYCLOVIR 600 MG in D5W 100 ML IV SCH ×2 (05:01→14:09)
[2016-11-21 05:35] LABS: ANION GAP 9 mEq/L (8-16); CALCIUM 8.7 mg/dL (8.5-10.4); CARBON DIOXIDE 24 mEq/l (22-31); CHLORIDE 104 mEq/L (97-110); CREATININE 0.8 mg/dL (0.6-1.0); GLOMERULAR FILTRATION RATE > 60; GLUCOSE 95 mg/dL (70-100); POTASSIUM 3.9 mEq/L (3.5-5.2); SODIUM 137 mEq/L (134-144)
[2016-11-21 07:52] VITALS: RESP 16
[2016-11-21 08:24] LABS: MISCELLANEOUS TEST See Comments
[2016-11-21] MEDS: ENOXAPARIN 40 MG/0.4 ML SYR SC SCH (09:19)
[2016-11-21] MEDS: levETIRAcetam 500 MG TAB PO SCH (09:20)
[2016-11-21] MEDS: DOCUSATE SODIUM 100 MG CAP PO SCH (09:20)
[2016-11-21] MEDS: GABAPENTIN 300 MG CAP PO SCH (09:20)
[2016-11-21] MEDS: FERROUS SULFATE 140 MG TAB.ER PO SCH (09:20)
[2016-11-21] MEDS: KETOROLAC 30 MG/1 ML SDV IVP PRN (09:24)
--- NOTE | 2016-11-21 09:26 | NEUROPROG ---
Assessment: I am not sure if there is any component of low-pressure headache syndrome from lumbar puncture. 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 We are going to give her a trial of some Decadron and see if that might help. Pursuing more complex and often very equivocal studies for a CSF leak does not seem warranted in the short-term. However, we will continue to consider how best to approach her case from day-to-day depending on her clinical course and response to various interventions. Today's total unit time was 25 minutes. I reviewed the case with Jessica Vega. 11/20/16: HSV encephalits and severe headache. Feeling low pressure headache less likely than just the underlying condition. Toradol helped. Will continue 30mg IV daily doses up to BID but will not do more than 5 days total of therapy max. Will also start gabapentin 300mg BID. Pain is precluding going to rehab at this point. Discussed with family and hospitalist. Total unit time of 25 minutes. 11/21/16 Much improved headache. She may be ready for rehab in the next 24 hrs. Continuing on IV Acyclovir. Total unit time 15 minutes. Subjective: Karis reports that she has currently headache in the range of 5/10 which is significantly better than yesterday. She received IV Toradol yesterday morning with good benefit. ABDI not much worse when up compared to previously. She is eating better and communication is much better per family. Objective: Vital Signs Temp Pulse Resp BP Pulse Ox 37.2 C 93 16 128/72 H 92 11/21/16 07:51 11/21/16 07:51 11/21/16 07:51 11/21/16 07:51 11/21/16 07:51 Laboratory Results 11/15/16 04:52 11/21/16 05:00 11/20/16 11/21/16 11/22/16 05:59 05:59 05:59 Intake Total 1513 250 Output Total 300 Balance 1213 250 PT 15.6 SEC (12.0-15.0) H 11/10/16 17:10 INR 1.24 (0.83-1.16) H 11/10/16 17:10 Awake and more allert and attentive and looks much more comfortable with improved spontaneous speech. Allergies/Adverse Reactions: Penicillins Allergy (Verified 11/10/16 17:22) Sulfa (Sulfonamide Antibiotics) Allergy (Verified 11/12/15 21:12)
--- NOTE | 2016-11-21 11:57 | HOSPPROG ---
Hospitalist Progress Note Assessment/Plan: Patient is a 56-year-old female who has a history of rheumatoid arthritis on immunosuppressive therapy who presented to the emergency room with acute encephalitis. At home she developed a headache which was followed by nausea and vomiting. Her noticed that she had a tonic-clonic seizure and called 911. When the paramedics arrived they noted that the patient was likely seizing. She was admitted for further evaluation. She had a lumbar puncture performed and an MRI was performed in addition. The MRI of the brain was concerning for herpes encephalitis. She was empirically started on high-dose acyclovir, vancomycin and ceftriaxone. 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 o. twice daily thereafter for chronic suppression serum west Nile antibodies negative PICC placed inpatient rehab consult ordered #Headache: Resolved! # Rheumatoid arthritis receiving immuno modulators in the outpatient setting, [facility] not resuming at this time # acute hyponatremia resolved #SZ on Keppra none further # LAVELLE Creatinine at 0.8 # normocytic anemia and iron deficiency anemia f/u with her PCP Dr Lemus # Mild hypocalcemia resolved #Hypotension resolved # Nutrition poor PO intake # DVT prophylaxis lovenox Plan: IP care Subjective: Marlee is feeling better today/ no c/o headache. Objective: Vital Signs Temp Pulse Resp BP Pulse Ox 37.2 C 93 16 128/72 H 92 11/21/16 07:51 11/21/16 07:51 11/21/16 07:51 11/21/16 07:51 11/21/16 07:51 Laboratory Results 11/15/16 04:52 11/21/16 05:00 11/20/16 11/21/16 11/22/16 05:59 05:59 05:59 Intake Total 1513 250 Output Total 300 700 Balance 1213 250 -700 PT 15.6 SEC (12.0-15.0) H 11/10/16 17:10 INR 1.24 (0.83-1.16) H 11/10/16 17:10 - Physical Exam Constitutional: no apparent distress, appears nourished, not in pain Eyes: PERRL Ears, Nose, Mouth, Throat: hearing normal Respiratory: no respiratory distress Skin: warm Musculoskeletal: no muscle tenderness, generalized weakness Neurologic: AAOx3 Psychiatric: interacting appropriately, flat affect ICD10 Worksheet Patient Problems: Problems Problem Status Onset Encephalitis Acute Cat bite of left wrist Acute Cellulitis Acute
[2016-11-21 12:12] VITALS: BP 117/66; PULSE 70; TEMP 98; O2SAT 93
--- NOTE | 2016-11-21 13:43 | PDIAF ---
- Diagnosis Diagnosis: HSV encephalitis Code Status: Full Code - Medication Management Discharge Medications: Medications to Continue on Transfer Adalimumab [Humira] 40 mg SQ .Q 2 WEEKS 11/10/16 [Last Taken 11/08/16] Methotrexate Sodium [Methotrexate] 15 mg PO FR 11/10/16 [Last Taken 11/08/16] Machine Whitener Antibiotics: acyclovir 600 mg IV q 8 hours Machine Whitener Antibiotic Stop Date: 12/09/16 Discharge Medications: Refer to the Discharge Home Medication list for PRN reason. PICC Care - Routine: Yes - Orders Services needed: Registered Nurse Diet Texture: Regular Texture Diet, Thin Liquids, Meds Whole w/Liquids - Labs/Radiology CBC Date: 11/25/16 (weekly) CMP Date: 11/25/16 (weekly) Creatinine Date: 11/28/16 (weekly) Call or Fax Lab and Imaging Results to: Dr. Damián Burns - Follow Up Care Current Providers and Referrals: Patient,NotPresent [Unknown] - As per Instructions
--- NOTE | 2016-11-21 13:50 | PCMIDPN ---
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 Patient is clinically much improved. We will survey the physicians and therapists seeing her to see if she would at this point benefit from inpatient rehabilitation or not. We will continue a 4 week duration course of IV acyclovir. She will need to be on suppressive Valtrex following completion. Plan: 1. Continue IV acyclovir current dose. 2. Watch creatinine on acyclovir. 3. follow-up clinical improvement. Subjective: Patient is sitting up in her chair in her hospital room. She is visiting with a friend. She seems to be much more alert and has much less cognitive delay. No fevers or chills. Headache is reportedly much better. Objective: Acyclovir # 12/19 Vital Signs Temp Pulse Resp BP Pulse Ox 36.7 C 70 16 117/66 93 11/21/16 12:00 11/21/16 12:00 11/21/16 12:00 11/21/16 12:00 11/21/16 12:00 Laboratory Results 11/15/16 04:52 11/21/16 05:00 11/20/16 11/21/16 11/22/16 05:59 05:59 05:59 Intake Total 1513 250 Output Total 300 700 Balance 1213 250 -700 - Physical Exam General Appearance: WD/WN, alert, no apparent distress, non-toxic Respiratory: lungs clear, normal breath sounds, No respiratory distress Cardiac/Chest: regular rate, rhythm, No tachycardia Skin: normal color, warm/dry, No rash Neuro/Psych: alert, normal mood/affect, oriented x 3 ICD10 Worksheet Patient Problems: Problems Problem Status Onset Encephalitis Acute Cat bite of left wrist Acute Cellulitis Acute
--- NOTE | 2016-11-21 14:54 | PDIAF ---
- Diagnosis Diagnosis: HSV encephalitis Code Status: Full Code - Medication Management Discharge Medications: Medications to Continue on Transfer Acetaminophen [Tylenol ES 500 mg (*)] 500 mg PO Q4HRS tab 11/21/16 [Last Taken Unknown] Docusate Sodium [Colace 100 MG (*)] 100 mg PO BID cap 11/21/16 [Last Taken Unknown] Ferrous Sulfate [Slow Fe 140 MG (*)] 140 mg PO DAILY tab.er 11/21/16 [Last Taken Unknown] Gabapentin [Neurontin 300 MG (*)] 300 mg PO BID cap 11/21/16 [Last Taken Unknown] Hydrocodone/APAP 5/325 [[place] 5/325 (*)] 1 - 2 tab PO Q4HRS PRN #0 tab 11/21/16 [Last Taken Unknown] Ketorolac Tromethamine [Toradol 30 mg/ml Inj (*)] 30 mg IVP Q12HRS PRN #5 vial 11/21/16 [Last Taken Unknown] levETIRAcetam [Keppra 500 mg (*)] 500 mg PO BID tab 11/21/16 [Last Taken Unknown] oxyCODONE IR [Oxycodone Ir (*)] 5 mg PO Q4HRS PRN #0 tab 11/21/16 [Last Taken Unknown] Administrative Secretary Antibiotics: acyclovir 600 mg IV q 8 hours Residential Antibiotic Stop Date: 12/09/16 Discharge Medications: Refer to the Discharge Home Medication list for PRN reason. PICC Care - Routine: Yes - Orders Services needed: Registered Nurse, Physical Therapy, Occupational Therapy Diet Texture: Regular Texture Diet, Thin Liquids, Meds Whole w/Liquids Additional: Acyclovir and Toradol can affect kidney function/ only use Toradol for a few more doses and then dc. Patient needs f/u with Dr Burns and Dr Quinonez to discuss medications prior to dc from rehab. She will need oral medications after IV medications for treatment of HSV. Talk with Dr Quinonez how long she will need Keppra. Currently, Humira and Methotrexate are on hold. - Labs/Radiology CBC Date: 11/25/16 (weekly) CMP Date: 11/25/16 (weekly) Creatinine Date: 11/28/16 (weekly) Call or Fax Lab and Imaging Results to: Dr. Damián Burns - Follow Up Care Current Providers and Referrals: Patient,NotPresent [Unknown] - As per Instructions Maury Quinonez MD [Medical Doctor] - Damián Burns MD [Medical Doctor] -
--- NOTE | 2016-11-21 15:16 | ASMTCMCOM ---
CM Note CM Note Notes: MDs and therapies recommending Inpt Rehab. Pt. hesitant to go per . Riri Walter ran authorization for Pt's insurance. Approved. SWer met w/ Pt., , and Pt's mother in room. Pt sleepy and mostly nodding out of conversation. asked SWer to step out while they spoke w/ Pt about going to Inpt Rehab to have best chances of better recovery. After only some five minutes, states Pt. will go to [facility] Inpatient Rehab today. Riri confirmed that Pt. d/c'ed closest to 15:30 would be great. plans to transport Pt. SWer gave detailed directions of how to get to Inpt. Rehab. Emmanuelr let Brook Disla , know to follow Pt. for home IV infusion after Inpt. Rehab. Date Signed: 11/21/2016 03:15 PM Electronically Signed By:Liya Gonzalez
--- NOTE | 2016-11-21 17:46 | ASDISCHSUM ---
Discharge Information Plan Status:Inpatient Rehab Medically Cleared to Leave: Discharge Date:11/21/2016 03:30 PM CM D/C Disposition:[facility] Acute ADT D/C Disposition:BDWIP Projected Discharge Date:11/21/2016 04:00 PM Transportation at D/C:Family Discharge Delay Reason: Follow-Up Date:11/21/2016 04:00 PM Discharge Slot: Final Diagnosis: Placement Information Referral Type:Rehabilitation Hospital Referral ID:[id number] Provider Name:[facility] Inpatient Rehab Address 1:[address] [place] [address] Phone Number: Address 2: Fax Number: [facility]:[place] Selection Factors: State:[place] Patient Contact Information Contact Name:TYE Relationship: Address:[address] [place] [address] Work Phone: [facility]:[place] Alternate Phone: State/Zip Code:[place] [address] Email: Financial Information Financial Class:[facility] Desc[facility] Primary Plan Number:[id number] Secondary Plan Desc: Secondary Plan Number: Assessment Information [facility] CM Progress Note CM Note CM Note Notes: Spoke w/RN re; dc to inpatient rehab. Pt has severe head pain, not able to dc to rehab, Riri notified. CM to let Riri know when pt is ready as she will need to reauthorize with patient's insurance. ALFA w/f Date Signed: 11/19/2016 03:00 PM Electronically Signed By:Sruthi Chapman [facility] CM Progress Note CM Note CM Note Notes: MDs and therapies recommending Inpt Rehab. Pt. hesitant to go per . Riri Walter ran authorization for Pt's insurance. Approved. Bairon met w/ Pt., , and Pt's mother in room. Pt sleepy and mostly nodding out of conversation. asked SWer to step out while they spoke w/ Pt about going to Inpt Rehab to have best chances of better recovery. After only some five minutes, states Pt. will go to [facility] Inpatient Rehab today. Riri confirmed that Pt. d/c'ed closest to 15:30 would be great. plans to transport Pt. Emmanuelr gave detailed directions of how to get to Inpt. Rehab. Emmanuelr let Brook Disla , know to follow Pt. for home IV infusion after Inpt. Rehab. Date Signed: 11/21/2016 03:15 PM Electronically Signed By:Liya Gonzalez Intervention Information
--- NOTE | 2016-11-21 17:52 | GDS ---
[f rep st] DISCHARGE SUMMARY DISCHARGE DIAGNOSES: 1. Acute encephalitis secondary to herpes simplex virus-1. 2. Headache. 3. Rheumatoid arthritis. 4. Acute hyponatremia. 5. Seizure. 6. Acute kidney injury. 7. Normocytic anemia and iron deficiency anemia. 8. Mild hypocalcemia. 9. Hypotension. 10. Poor oral intake. CONSULTATIONS: 1. Dr. Maury Quinonez. 2. Dr. Damián Burns. BRIEF HISTORY: The patient is a 56-year-old female with a past medical history of rheumatoid arthritis. She is on immunosuppressive therapy with Humira and methotrexate. Prior to admission, the patient had developed a headache which was like a migraine. This was followed with some nausea and vomiting. She started to develop progressive confusion and a fever of 103. Her noted activity concerning for a tonoclonic seizure. She was transferred to [facility] for further care. Multiple procedures were done during her stay including a lumbar puncture, which confirmed that she had an HSV infection. Her serum West Nile antibodies were noted to be negative. She was treated with IV acyclovir, and she improved throughout her stay. In addition, she had a persistent headache that was impacting her ability to get out of bed. The initial concern was that she had a cerebral spinal fluid leak. She had a blood patch placed. Her symptoms do not improve with this. She was treated with Toradol and gabapentin, and today her headache is markedly improved. The plan is for her to go to [facility]. She will further follow up with Dr. Quinonez and discussed her care, as far as how long to continue the Keppra for her seizure. In addition, she will need suppressive oral therapy with Valtrex once she is done with her IV infusions of the acyclovir. HOSPITAL COURSE: 1. Acute encephalitis. This is secondary to herpes simplex virus-1. This was confirmed by her in cerebral spinal fluid studies. IV acyclovir will be continued. She will need this for a total of 4 weeks, and then Valtrex 1 g p.o. twice daily. Her headaches improved. Gabapentin will be continued. 2. Rheumatoid arthritis. She is receiving immunomodulators in the outpatient setting. We have not resumed these at this time. This will need further discussion. 3. Acute hyponatremia, resolved. 4. Seizures. None further. Keppra has been continued. 5. Acute kidney injury. Most recent creatinine is 0.9. 6. Normocytic anemia with iron deficiency anemia. Further follow up with Dr. Lemus. 7. Mild hypocalcemia, resolved. 8. Hypotension, resolved. 9. Poor oral intake. This has improved since her headache has improved. CONDITION AT DISCHARGE: Stable. Blood pressure is 128/72, respiratory rate is 16, pulse is 93, temperature is 37.2 Celsius, O2 sats on room air 92%. MEDICATIONS AT DISCHARGE: Please see the EMR. DISCHARGE INSTRUCTIONS: 1. I spoke with inpatient rehab and asked them to only give her a few more doses of the Toradol, because this can impact her kidney function. 2. To follow up with Dr. Burns. 3. To follow up with Dr. Quinonez. Greater than 30 minutes discharging and coordinating her care. /[id number]/MODL MTDD
== END 2016-11-21 15:30 | DRG 98 ==
LOC: EDUNIT# → OBSVTOIN 20:14 → F2N 21:04 → F3E 11-12 18:41
PROVIDERS: ADMIT Internal Medicine; ATTEND Internal Medicine
PROC: 009U3ZX Drainage of Spinal Canal, Percutaneous Approach, Diagnostic (ICD-10-PCS; principal; 2016-11-10)
PROC: 02HV33Z Insertion of Infusion Device into Superior Vena Cava, Percutaneous Approach (ICD-10-PCS; 2016-11-15)
PROC: 3E0R3GC Introduction of Other Therapeutic Substance into Spinal Canal, Percutaneous Approach (ICD-10-PCS; 2016-11-18)
DX: B00.4 Herpesviral encephalitis (principal); N17.9 Acute kidney failure, unspecified; G97.1 Other reaction to spinal and lumbar puncture; M06.9 Rheumatoid arthritis, unspecified; G40.909 Epilepsy, unspecified, not intractable, without status epilepticus; D50.9 Iron deficiency anemia, unspecified; E83.51 Hypocalcemia; I95.9 Hypotension, unspecified; E87.6 Hypokalemia
CPT/HCPCS: 82947-QW; 87798-90; 92507-GN; 92523-GN; 92610-GN; 96365; 97112-GP; 97116-GP; 97162-GP; 97166-GO; 97535-GO; A9585; C1751; J0133; J0330; J0610; J0692; J0696; J1100; J1650; J1885; J1953; J2405; J2704; J2997; J3370; Q9967

== ENCOUNTER 2016-11-21 16:10 | Inpatient (IN) | payer OTHER ==
[2016-11-21] MEDS ORDERED: ALTEPLASE 2 MG VIAL IVP PRN (16:37)
[2016-11-21] MEDS ORDERED: oxyCODONE IR 5 MG TAB PO PRN (17:04)
[2016-11-21] MEDS ORDERED: KETOROLAC 30 MG/1 ML SDV IVP PRN (17:04)
[2016-11-21] MEDS ORDERED: BISACODYL 10 MG SUPP PR PRN (17:07)
--- NOTE | 2016-11-21 17:47 | GHP ---
[f rep st] HISTORY AND PHYSICAL POST ADMISSION PHYSICIAN EVALUATION AND REHABILITATION TREATMENT PLAN DATE OF ADMISSION: 11/21/2016 DATE OF EVALUATION: 11/21/2016 TIME OF EVALUATION: 1625. REFERRING FACILITY: [facility] [place]. REFERRING PHYSICIAN: Mia Tellez NP IMPAIRMENT GROUP: 2.1. DATE OF ONSET: 11/10/2016. CONSULTING PHYSICIANS: There were consultations with infectious disease, Dr. Burns; pulmonary critical care, Dr. Diaz; and neurology, Dr. Quinonez. REHABILITATION DIAGNOSIS: Debility, status post herpes simplex virus encephalitis. ETIOLOGIC DIAGNOSIS: Nontraumatic brain dysfunction. HISTORY OF PRESENT ILLNESS: This patient is a 56-year-old woman with history of rheumatoid arthritis on immunosuppressive therapy, who was admitted to [facility] with fever, headache, confusion and seizures. Head CT showed right temporal lobe vasogenic edema. Brain MRI showed edema consistent with herpes simplex virus encephalitis. Lumbar puncture was performed in the emergency department and was positive for herpes simplex type 1 DNA. She was begun on Keppra for seizures and IV acyclovir. Hospital course was complicated by headache, which eventually responded to IV ketorolac. She had hyponatremia, which resolved. There was acute kidney injury with creatinine increasing from 0.9 on admission and 0.6 after hydration on the same day to a high of 1.2 on 11/15/2016; creatinine on 11/21/2016, the day of discharge, is at 0.8. She was found to have normocytic anemia with iron deficiency and was placed on iron replacement. She was stabilized regarding medical issues, especially with the resolution of her headache. She was ready for inpatient rehabilitation. OTHER STUDIES AND LABS IN THE HOSPITAL: Hemoglobin and hematocrit stabilized and when last checked on 11/15/2016, hemoglobin was 10.8 and hematocrit was 31.1. She initially had an elevated white blood cell count, but this normalized. Coagulation studies revealed a slightly high PT and INR. PT was 15.6 and INR was 1.24. Venous blood lactic acid was markedly elevated at 12.9 and subsequently improved on the same day to 1.1. Urinalysis was positive for protein, ketones and blood on the day of admission and was not rechecked. PRECAUTIONS: She has seizure precautions and she is a fall risk. ACTIVE COMORBIDITIES: She has no active tier 1, tier 2 or tier 3 comorbidities. PAST MEDICAL HISTORY: Rheumatoid arthritis. PAST SURGICAL HISTORY: She has had orthopedic surgery in childhood. MEDICATIONS PRIOR TO HER HOSPITALIZATION: 1. Adalimumab 40 mg subcutaneous q. 2 weeks. 2. Methotrexate 15 mg p.o. q. Friday. ADMISSION MEDICATIONS: 1. Oxycodone 5 mg p.o. q.4 hours p.r.n. 2. Acetaminophen 500 mg p.o. q.4 hours. 3. Docusate 100 mg p.o. b.i.d. 4. Ferrous sulfate 140 mg p.o. daily. 5. Gabapentin 300 mg p.o. b.i.d. 6. Hydrocodone/acetaminophen 5/325, 1 to 2 tabs p.o. q.4 hours p.r.n. 7. Ketorolac 30 mg IV q.12 hours p.r.n. 8. Levetiracetam 500 mg p.o. b.i.d. 9. Oxycodone IR 5 mg p.o. q.4 hours p.r.n. 10. Acyclovir 600 mg IV q.8 hours until 12/09/2016. ALLERGIES: Listed to penicillin and sulfa antibiotics. FAMILY HISTORY: Noncontributory. PSYCHOSOCIAL HISTORY: She is . She lives with her . 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 She is a nonsmoker and does not have significant alcohol use. She does not use any other substances of abuse. She has an adult daughter who lives in [place] and who is involved. REVIEW OF SYSTEMS: Her headache has resolved. She admits to having had some confusion as to the date and other issues regarding orientation, but currently is oriented. She denies weakness, numbness or tingling of the extremities. She denies difficulty swallowing or vision changes. She does not have any joint pain or swelling at present. She denies dyspnea or cough. She denies chest pain or palpitations. She denies nausea, vomiting, constipation or diarrhea. She denies dysuria or urinary frequency. Otherwise, a 10-point review of systems is negative. PHYSICAL EXAM: VITAL SIGNS: This morning at the hospital, blood pressure was 117/66, heart rate was 70, respiratory rate was 16, oxygen saturation was 93% on room air, temperature was 36.7 degrees centigrade. Her weight was 59.5 kg for a body mass index of 21.8. GENERAL: This is a well-nourished, well- developed woman, appears her chronologic age. Cooperative and in no acute distress. HEENT: Extraocular movements are intact. Pupils are equal, round and reactive to light. Mucous membranes are moist. Dentition is in in good condition. She has an uncrowded airway, Mallampati class 1. NECK: Supple. HEART: Regular rate and rhythm with no murmurs, rubs or gallops. LUNGS: Clear to auscultation bilaterally. ABDOMEN: Soft, nontender, nondistended, with normoactive bowel sounds. EXTREMITIES: There is no cyanosis, clubbing or edema. NEUROLOGIC: She is alert and oriented x3. She is slightly slow to respond. Cranial nerves 2-12 are grossly intact. There is no focal weakness. Sensation is intact to light touch. Deep tendon reflexes are 2+ bilaterally at the biceps, patella and Achilles tendons. [id number] testing reveals normal speed and no past pointing. Language appears to be intact with no deficit to naming. CURRENT LEVEL OF FUNCTION PER THE PRE-ADMISSION SCREEN: Regarding diet, feeding and swallowing, she was on a regular diet with thin liquids. Grooming was accomplished with standby assist to contact guard assist with multistep cues to complete tasks and increased time for completion. Bathing required minimal assist with voice cues to initiate washing each part of her body. She required minimal assist for transferring. Dressing upper body was done seated with set up and voice cues, and lower body with contact guard and voice cues. Toileting was done with set up and contact guard for transfers using voice cues as well. She was continent of bladder and bowel. Regarding bed mobility, she required standby assist to minimal assist with voice cues. She was slow to process commands. Transfers were accomplished with contact guard. Balance required contact guard to minimal assist. Endurance was fair. She was able to ambulate 250 feet with standby assist to contact guard using no device. She required minimal assist with 1 loss of balance during ADLs. Regarding communication, she was noted to be slow to respond, requiring extra time and cuing for elaboration of current deficits. Regarding cognition, she was noted to have moderate impairment in attention, executive function, problem solving and social interactions. 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 This caused seizures and acute confusion. She has been treated with IV acyclovir and has had considerable improvement. Hospital course was complicated by hyponatremia, which resolved; headache, which eventually responded to Ketoralac; acute kidney injury with recovery; and the diagnosis of iron deficiency anemia. Medical issues have been stabilized, and she has been compliant with therapies and is ready for inpatient rehabilitation. Her goal is to return home with her family and outpatient services as needed. For a safe discharge, it is expected she will achieve independence with eating and grooming and bed mobility, and modified independence for transfers, toileting, bathing, dressing and ambulation on level and unlevel surfaces. It is expected she will demonstrate improved cognition and be able to perform tasks in a timely manner. She may require assistance for household management and shopping. She will have therapy with physical therapy, occupational therapy, and speech and language pathology for 60 minutes per day for each discipline on 5-7 days of the week. Her expected duration of stay is 7-10 days. It is anticipated that upon discharge, she will continue to benefit from outpatient speech and language pathology. ASSESSMENT AND PLAN: 1. Impaired balance and activities of daily living due to herpes simplex virus encephalitis affecting the right temporal lobe. PT and OT to optimize mobility and activities of daily living. 2. 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 Assessment and treatment per Speech and Language Pathology. 3. Herpes simplex virus type 1 encephalitis. Continue acyclovir IV through December 09, 2016. Subsequently, she will be transitioned to oral medication and will have continued followup per the infectious disease service. 4. Headache in the hospital was thought to be related to lumbar puncture and a possible dural leak. She had a blood patch. Headache finally resolved with the use of IV ketorolac. Ketorolac will be continued in the short term. However she also had renal insufficiency and Ketoralac increases the level of acyclovir. She will have close monitoring of her renal function, and it is hoped that she can be transitioned off nonsteroidal anti-inflammatory medications. 5. Rheumatoid arthritis. She had immunosuppression due to treatment with adalimumab and methotrexate. These are being held for now until she completes treatment for the encephalitis. We will monitor for return of symptoms, which are not present on exam today. 6. Iron deficiency anemia. Continue iron supplement and follow up with primary care after discharge. 7. History of seizures. Continue levetiracetam until followup with Neurology after discharge. 8. Prophylaxis. She has no hemiparesis. She has ambulated 250 feet. She appears to be low to moderate risk, and will not have any pharmacologic anticoagulation. /[id number]/MODL MTDArlene
[2016-11-21] MEDS: ACETAMINOPHEN 500 MG TAB PO SCH ×2 (17:53→22:36)
[2016-11-21] MEDS: ACYCLOVIR 600 MG in D5W 100 ML IV SCH (22:34)
[2016-11-21] MEDS: GABAPENTIN 300 MG CAP PO SCH (22:36)
[2016-11-21] MEDS: levETIRAcetam 500 MG TAB PO SCH (22:36)
[2016-11-21] MEDS: DOCUSATE SODIUM 100 MG CAP PO SCH (22:37)
[2016-11-22] MEDS: ACETAMINOPHEN 500 MG TAB PO SCH ×6 (02:00→21:08)
[2016-11-22] MEDS: ACYCLOVIR 600 MG in D5W 100 ML IV SCH ×3 (05:55→21:08)
[2016-11-22] MEDS: SENNOSIDES 1 TAB PO PRN (09:12)
[2016-11-22] MEDS: GABAPENTIN 300 MG CAP PO SCH ×2 (09:12→21:08)
[2016-11-22] MEDS: levETIRAcetam 500 MG TAB PO SCH ×2 (09:12→21:08)
[2016-11-22] MEDS: DOCUSATE SODIUM 100 MG CAP PO SCH ×2 (09:55→21:09)
[2016-11-22] MEDS: FERROUS SULFATE 140 MG TAB.ER PO SCH (12:40)
--- NOTE | 2016-11-22 12:58 | SOAPPROG ---
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 Hospital course was complicated by hyponatremia, which resolved; headache, which eventually responded to Ketoralac ; acute kidney injury with recovery; and the diagnosis of iron deficiency anemia. * Impaired balance and activities of daily living due to herpes simplex virus encephalitis affecting the right temporal lobe. PT and OT to optimize mobility and activities of daily living. 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 Assessment and treatment per Speech and Language Pathology. * Herpes simplex virus type 1 encephalitis. Continue acyclovir IV through December 09, 2016. Subsequently, she will be transitioned to oral medication and will have continued followup per the infectious disease service. * Headache in the hospital was thought to be related to lumbar puncture and a possible dural leak. She had a blood patch. Headache finally resolved with the use of IV ketorolac. Ketorolac will be continued in the short term. Monitor renal function. * Hypotension. Unclear etiology. No laboratory abnormalities to suggest adrenal insufficiency; does not appear dehydrated. No S/Sx sepsis or other infection. Continue to monitor. * Rheumatoid arthritis. She had immunosuppression due to treatment with adalimumab and methotrexate. These are being held for now until she completes treatment for the encephalitis. We will monitor for return of symptoms, which are not present on exam today. * Iron deficiency anemia. Continue iron supplement and follow up with primary care after discharge. * History of seizures. Continue levetiracetam until followup with Neurology after discharge. * Prophylaxis. She has no hemiparesis. She has ambulated 250 feet. She appears to be low to moderate risk, and will not have any pharmacologic anticoagulation. 11/22/16 13:48 Subjective: Nurse notes low blood pressure today. Patient reports feeling lightheaded with standing, however was able to ambulate outside on even and uneven surfaces with PT. She does not feel thirsty. Nursing has been encouraging fluid intake. No fevers or chills, no joint pain or swelling. Objective: Vital Signs Temp Pulse Resp BP Pulse Ox 37.3 C 78 16 80/56 L 90 L 11/22/16 06:10 11/22/16 12:41 11/22/16 06:10 11/22/16 12:41 11/22/16 11:30 11/21/16 11/22/16 11/23/16 05:59 05:59 05:59 Intake Total 120 300 Balance 120 300 Physical Exam - Physical Exam General Appearance: WD/WN, alert, no apparent distress Respiratory: normal breath sounds, No crackles, No rhonchi, No wheezing Cardiac/Chest: regular rate, rhythm, JVD, No edema Skin: normal color, warm/dry Neuro/Psych: no motor/sensory deficits, alert, normal mood/affect, cognition abnormalities (Slow responses) ICD10 Worksheet Patient Problems: Problems Problem Status Onset Cat bite of left wrist Acute Cellulitis Acute Encephalitis Acute
--- NOTE | 2016-11-22 19:58 | PDOREHIP ---
Admission [facility] - Admission - 3 Day Assessment Period Admission Date/Day 1: 11/21/16 Day 2: 11/22/16 Day 3: 11/23/16 - Active Diagnoses Comorbidities and Co-existing Conditions at Admission: 38381. None of the Above - Skin Conditions Unhealed Pressure Ulcer (1 or more/Stage 1 or >)-Admission: 0. No
[2016-11-23] MEDS: ACETAMINOPHEN 500 MG TAB PO SCH ×3 (02:14→12:00)
[2016-11-23] MEDS: ACYCLOVIR 600 MG in D5W 100 ML IV SCH ×3 (05:36→20:58)
[2016-11-23] MEDS: FERROUS SULFATE 140 MG TAB.ER PO SCH (08:42)
[2016-11-23] MEDS: DOCUSATE SODIUM 100 MG CAP PO SCH ×2 (08:42→21:12)
[2016-11-23] MEDS: SENNOSIDES 1 TAB PO PRN (08:42)
[2016-11-23] MEDS: GABAPENTIN 300 MG CAP PO SCH ×2 (08:43→21:12)
[2016-11-23] MEDS: levETIRAcetam 500 MG TAB PO SCH ×2 (08:43→21:12)
--- NOTE | 2016-11-23 09:57 | SOAPPROG ---
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 Hospital course was complicated by hyponatremia, which resolved; headache, which eventually responded to Ketoralac ; acute kidney injury with recovery; and the diagnosis of iron deficiency anemia. * Impaired balance and activities of daily living due to herpes simplex virus encephalitis affecting the right temporal lobe. PT and OT to optimize mobility and activities of daily living. 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 Assessment and treatment per Speech and Language Pathology. * Herpes simplex virus type 1 encephalitis. Continue acyclovir IV through December 09, 2016. Subsequently, she will be transitioned to oral medication and will have continued followup per the infectious disease service. * Headache in the hospital was thought to be related to lumbar puncture and a possible dural leak. She had a blood patch. Headache finally resolved with the use of IV ketorolac. Ketorolac will be continued in the short term. Monitor renal function. * PAIN MANAGEMENT-ON WILL DECREASE I BE WILL DECREASE TYLENOL TO 500 Q.6 HOURS IN CASE SHE NEEDS TO TAKE THE HYDROCODONE A PAP, TO AVOID EXCEEDING 3 G ACETAMINOPHEN PER DAY * Hypotension. BLOOD PRESSURE THIS MORNING 114/65. NURSING TO ENCOURAGE FLUIDS. * Rheumatoid arthritis. She had immunosuppression due to treatment with adalimumab and methotrexate. These are being held for now until she completes treatment for the encephalitis. We will monitor for return of symptoms, which are not present on exam today. * Iron deficiency anemia. Continue iron supplement and follow up with primary care after discharge. * History of seizures. Continue levetiracetam until followup with Neurology after discharge. * Prophylaxis. She has no hemiparesis. She has ambulated 250 feet. She appears to be low to moderate risk, and will not have any pharmacologic anticoagulation. Plan: 11/23/16 10:01 Subjective: NO PROBLEMS REPORTED PER PATIENT OR NURSING. NURSING HAS REQUESTED THAT HER IN TYLENOL DOSAGE BE DECREASED ON TO ALLOW FOR AN ON OPIOID ANALGESICS WHICH ALSO HAVE TYLENOL IN THEM. Objective: Vital Signs Temp Pulse Resp BP Pulse Ox 36.9 C 74 16 114/65 93 11/23/16 06:49 11/23/16 06:49 11/23/16 06:49 11/23/16 06:49 11/23/16 06:49 11/22/16 11/23/16 11/24/16 05:59 05:59 05:59 Intake Total 120 1920 220 Output Total 1700 500 Balance 120 220 -280 Physical Exam - Physical Exam General Appearance: WD/WN, no apparent distress EENT: PERRL/EOMI, other (SOMEWHAT DYSPHONIC) Neck: non-tender (HE HAS), supple (WE HE HE HE THE IN 0 0 AT IT IF HIS IF HIS BLOOD PRESSURE IS TO BE BUT WILL HOLD TO HE HE HE IS TO BE WITH THE) Respiratory: lungs clear, normal breath sounds Abdomen: non-tender, soft (CAP) Skin: normal color, warm/dry Neuro/Psych: No normal mood/affect ( BLUNT AFFECT) ICD10 Worksheet Patient Problems: Problems Problem Status Onset Cat bite of left wrist Acute Cellulitis Acute Encephalitis Acute
[2016-11-23] MEDS: HYDROCODONE/APAP 5/325 TAB PO PRN ×2 (12:13→18:00)
[2016-11-23 14:01] LABS: ANION GAP 10 mEq/L (8-16); CALCIUM 8.8 mg/dL (8.5-10.4); CARBON DIOXIDE 25 mEq/l (22-31); CHLORIDE 99 mEq/L (97-110); CREATININE 0.7 mg/dL (0.6-1.0); GLOMERULAR FILTRATION RATE > 60; GLUCOSE 83 mg/dL (70-100); POTASSIUM 4.1 mEq/L (3.5-5.2); SODIUM 134 mEq/L (134-144)
[2016-11-23] MEDS: ACETAMINOPHEN 500 MG TAB PO PRN (21:12)
[2016-11-24] MEDS: ACYCLOVIR 600 MG in D5W 100 ML IV SCH ×3 (06:04→22:09)
[2016-11-24] MEDS: DOCUSATE SODIUM 100 MG CAP PO SCH ×2 (08:47→22:10)
[2016-11-24] MEDS: FERROUS SULFATE 140 MG TAB.ER PO SCH (08:47)
[2016-11-24] MEDS: levETIRAcetam 500 MG TAB PO SCH ×2 (08:47→22:10)
[2016-11-24] MEDS: GABAPENTIN 300 MG CAP PO SCH ×2 (08:48→22:10)
[2016-11-24] MEDS: ACETAMINOPHEN 500 MG TAB PO PRN ×3 (08:48→22:22)
--- NOTE | 2016-11-24 11:16 | SOAPPROG ---
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 Hospital course was complicated by hyponatremia, which resolved; headache, which eventually responded to Ketoralac ; acute kidney injury with recovery; and the diagnosis of iron deficiency anemia. * Impaired balance and activities of daily living due to herpes simplex virus encephalitis affecting the right temporal lobe. PT and OT to optimize mobility and activities of daily living. 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 Assessment and treatment per Speech and Language Pathology. * Herpes simplex virus type 1 encephalitis. Continue acyclovir IV through December 09, 2016. Subsequently, she will be transitioned to oral medication and will have continued followup per the infectious disease service. * Headache in the hospital was thought to be related to lumbar puncture and a possible dural leak. She had a blood patch. Headache finally resolved with the use of IV ketorolac. Ketorolac will be continued in the short term. Monitor renal function. * PAIN MANAGEMENT-ON WILL DECREASE I BE WILL DECREASE TYLENOL TO 500 Q.6 HOURS IN CASE SHE NEEDS TO TAKE THE HYDROCODONE A PAP, TO AVOID EXCEEDING 3 G ACETAMINOPHEN PER DAY * Hypotension. BLOOD PRESSURE THIS MORNING 114/65. NURSING TO ENCOURAGE FLUIDS. * Rheumatoid arthritis. She had immunosuppression due to treatment with adalimumab and methotrexate. These are being held for now until she completes treatment for the encephalitis. We will monitor for return of symptoms, which are not present on exam today. * Iron deficiency anemia. Continue iron supplement and follow up with primary care after discharge. * History of seizures. Continue levetiracetam until followup with Neurology after discharge. * Prophylaxis. She has no hemiparesis. She has ambulated 250 feet. She appears to be low to moderate risk, and will not have any pharmacologic anticoagulation. Plan: 11/23/16 10:01 Subjective: NO NEW COMPLAINTS THIS A.M. PER NURSING STAFF AND PER PATIENT. HER , WHO WAS PRESENT TODAY DURING EVALUATIONS INDICATES THAT HE HIS PLEASED WITH HER PROGRESS Objective: Vital Signs Temp Pulse Resp BP Pulse Ox 37.2 C 66 16 111/61 93 11/24/16 06:49 11/24/16 06:49 11/24/16 06:49 11/24/16 06:49 11/24/16 06:49 Laboratory Results 11/23/16 11:25 11/23/16 11/24/1611/25/17 05:59 05:59 05:59 Intake Total 1920 1200 190 Output Total 0082 128 2589 Balance 220 700 -810 Physical Exam - Physical Exam General Appearance: WD/WN, alert, no apparent distress Neck: non-tender, full range of motion Respiratory: lungs clear, normal breath sounds Cardiac/Chest: No edema Abdomen: normal bowel sounds, non-tender, soft Skin: normal color, warm/dry Extremities: No calf tenderness, No swelling, No Jair's sign (uNCHANGED FROM PREVIOUS) ICD10 Worksheet Patient Problems: Problems Problem Status Onset Cat bite of left wrist Acute Cellulitis Acute Encephalitis Acute
[2016-11-25] MEDS: ACYCLOVIR 600 MG in D5W 100 ML IV SCH ×3 (06:18→21:57)
[2016-11-25 08:27] LABS: % IMMATURE GRANULYOCYTES 0.2 % (0.0-1.1); ABSOLUTE IMMATURE GRANULOCYTES 0.01 10^3/uL (0.00-0.10); ADD DIFF? NO; ADD MORPH? NO; ADD SCAN? NO; ATYPICAL LYMPHOCYTE FLAG 30 (0-99); FRAGMENT RBC FLAG 20 (0-99); HEMATOCRIT 29.5 % (38.0-47.0); HEMOGLOBIN 9.8 g/dL (12.6-16.3); LEFT SHIFT FLG 0 (0-99); LIPEMIA HEMOLYSIS FLAG 80 (0-99); MEAN CELL HEMOGLOBIN 33.1 pg (27.9-34.1); MEAN CELL HEMOGLOBIN CONCENTR. 33.2 g/dL (32.4-36.7); MEAN CELL VOLUME 99.7 fL (81.5-99.8); PLATELET CLUMPS FLAG 0 (0-99); PLATELET COUNT 408 10^3/uL (150-400); RED BLOOD CELL COUNT 2.96 10^6/uL (4.18-5.33); RED CELL DISTRIBUTION WIDTH 13.9 % (11.5-15.2)
[2016-11-25] MEDS: levETIRAcetam 500 MG TAB PO SCH ×2 (08:40→21:57)
[2016-11-25] MEDS: GABAPENTIN 300 MG CAP PO SCH ×2 (08:40→21:57)
[2016-11-25] MEDS: FERROUS SULFATE 140 MG TAB.ER PO SCH (08:40)
[2016-11-25] MEDS: ACETAMINOPHEN 500 MG TAB PO PRN (08:40)
[2016-11-25] MEDS: DOCUSATE SODIUM 100 MG CAP PO SCH ×2 (08:40→21:57)
[2016-11-25 08:46] LABS: ALANINE AMINOTRANSFERASE 48 IU/L (9-52); ALBUMIN 3.3 g/dL (3.5-5.0); ALKALINE PHOSPHATASE 40 IU/L (38-126); ANION GAP 10 mEq/L (8-16); ASPARTATE AMINOTRANSFERASE 29 IU/L (14-46); BILIRUBIN,TOTAL 0.5 mg/dL (0.1-1.4); CARBON DIOXIDE 26 mEq/l (22-31); CHLORIDE 101 mEq/L (97-110); CREATININE 0.7 mg/dL (0.6-1.0); GLOMERULAR FILTRATION RATE > 60; GLUCOSE 86 mg/dL (70-100); POTASSIUM 4.3 mEq/L (3.5-5.2); SODIUM 137 mEq/L (134-144); TOTAL PROTEIN 5.9 g/dL (6.3-8.2)
--- NOTE | 2016-11-25 12:19 | SOAPPROG ---
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 Hospital course was complicated by hyponatremia, which resolved; headache, which eventually responded to Ketoralac ; acute kidney injury with recovery; and the diagnosis of iron deficiency anemia. * Impaired balance and activities of daily living due to herpes simplex virus encephalitis affecting the right temporal lobe. PT and OT to optimize mobility and activities of daily living. 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 FEELS SHE'S ALMOST BACK TO BASELINR * Herpes simplex virus type 1 encephalitis. Continue acyclovir IV through December 09, 2016. Subsequently, she will be transitioned to oral medication and will have continued followup per the infectious disease service. * Headache in the hospital was thought to be related to lumbar puncture and a possible dural leak. She had a blood patch. Headache finally resolved with the use of IV ketorolac. Ketorolac will be continued in the short term. Monitor renal function. * PAIN MANAGEMENT-ON WILL DECREASE I BE WILL DECREASE TYLENOL TO 500 Q.6 HOURS IN CASE SHE NEEDS TO TAKE THE HYDROCODONE A PAP, TO AVOID EXCEEDING 3 G ACETAMINOPHEN PER DAY * Hypotension. BLOOD PRESSURE THIS MORNING 124/71 * Rheumatoid arthritis. She had immunosuppression due to treatment with adalimumab and methotrexate. These are being held for now until she completes treatment for the encephalitis. We will monitor for return of symptoms, which are not present on exam today. * Iron deficiency anemia. Continue iron supplement and follow up with primary care after discharge. * History of seizures. Continue levetiracetam until followup with Neurology after discharge. * Prophylaxis. She has no hemiparesis. She has ambulated 250 feet. She appears to be low to moderate risk, and will not have any pharmacologic anticoagulation. Plan: 11/23/16 10:01 11/25/16 12:17 Subjective: NO COMPLIANTS. REPORTS SHE WALKED OUTSIDE WITH SLIGHT TENDENCY TO LEAN TO RIGHT, NO EVIDENCE OF TRUNK OR KNEE INSTABILITY, NO FOOT DRAG. HE FEELS HER COGNITIVE STATUS IS ALMOST BACK TO HER BASELINR. Objective: Vital Signs Temp Pulse Resp BP Pulse Ox 37.3 C 72 16 124/71 H 91 L 11/25/16 07:27 11/25/16 07:27 11/25/16 07:27 11/25/16 07:27 11/25/16 07:27 Laboratory Results 11/25/16 06:15 11/25/16 06:15 11/24/16 11/25/16 11/26/16 05:59 05:59 05:59 Intake Total 1200 1211 360 Output Total 500 1900 Balance 700 -689 360 Physical Exam - Physical Exam General Appearance: WD/WN Respiratory: chest non-tender, lungs clear Cardiac/Chest: No edema Abdomen: normal bowel sounds, non-tender Skin: normal color, warm/dry Neuro/Psych: no motor/sensory deficits, alert (BLUNT AFFECT) ICD10 Worksheet Patient Problems: Problems Problem Status Onset Cat bite of left wrist Acute Cellulitis Acute Encephalitis Acute
[2016-11-26] MEDS: ACYCLOVIR 600 MG in D5W 100 ML IV SCH ×3 (05:53→22:13)
[2016-11-26] MEDS: FERROUS SULFATE 140 MG TAB.ER PO SCH (08:33)
[2016-11-26] MEDS: levETIRAcetam 500 MG TAB PO SCH ×2 (08:33→20:33)
[2016-11-26] MEDS: DOCUSATE SODIUM 100 MG CAP PO SCH ×2 (08:33→20:33)
[2016-11-26] MEDS: GABAPENTIN 300 MG CAP PO SCH ×2 (08:33→20:33)
--- NOTE | 2016-11-26 17:43 | SOAPPROG ---
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 Hospital course was complicated by hyponatremia, which resolved; headache, which eventually responded to Ketoralac ; acute kidney injury with recovery; and the diagnosis of iron deficiency anemia. * Impaired balance and activities of daily living due to herpes simplex virus encephalitis affecting the right temporal lobe. Initial functional independence measure 94 on 11/26/2016. Supervision or set up for activities of daily living except independent for toileting. Ambulating with standby assist, good balance. Needs cues to initiate tasks. Continue PT and OT to optimize mobility and activities of daily living. 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 Has decreased executive function with reduced initiation and task persistence. Has decreased speed of processing. Continue Speech and Language Pathology. * Herpes simplex virus type 1 encephalitis. Continue acyclovir IV through December 09, 2016. Subsequently, she will be transitioned to oral medication and will have continued followup per the infectious disease service. * Headache in the hospital was thought to be related to lumbar puncture and a possible dural leak. She had a blood patch. Headache finally resolved with the use of IV ketorolac. Ketorolac has been discontinued. Headaches are mostly resolved. * Hypotension. Unclear etiology. No laboratory abnormalities to suggest adrenal insufficiency; does not appear dehydrated. No S/Sx sepsis or other infection. Continue to monitor. * Rheumatoid arthritis. She had immunosuppression due to treatment with adalimumab and methotrexate. These are being held for now until she completes treatment for the encephalitis. Has some return of symptoms. Follow up with supervisor forming department Dr. Lucas after discharge. * Iron deficiency anemia. Continue iron supplement and follow up with primary care after discharge. * History of seizures. Continue levetiracetam until followup with Neurology after discharge. * Prophylaxis. She has no hemiparesis. She has ambulated 250 feet. She appears to be low to moderate risk, and will not have any pharmacologic anticoagulation. Attended staffing, 15 minutes. Discussed with case management, nursing, dietitian, PT, OT, ICT TRAINER. Discharge set for tomorrow 11/27/2016. Will have outpatient ICT TRAINER. 11/26/16 17:41 Subjective: Still with some headaches but has not used pain meds since yesterday. Reports return of some stiffness to the 1st finger of her right hand and to her left ankle, but no joint pain. Objective: Vital Signs Temp Pulse Resp BP Pulse Ox 36.9 C 71 16 110/64 92 11/26/16 05:53 11/26/16 05:53 11/26/16 05:53 11/26/16 05:53 11/26/16 05:53 Laboratory Results 11/25/16 06:15 11/25/16 06:15 11/25/16 11/26/16 11/27/16 05:59 05:59 05:59 Intake Total 1213 824 490 Output Total 7750 Balance -789 824 490 - Time Spent With Patient Time Spent With Patient: Greater than 35 minutes floor time today, including more than 50% of time in coordination of care during staffing meeting, and counseling patient. Physical Exam - Physical Exam General Appearance: WD/WN, alert, no apparent distress Respiratory: No respiratory distress, No accessory muscle use Skin: normal color, warm/dry Extremities: other (No joint swelling.) Neuro/Psych: no motor/sensory deficits, alert, normal mood/affect, oriented x 3 ICD10 Worksheet Patient Problems: Problems Problem Status Onset Cat bite of left wrist Acute Cellulitis Acute Encephalitis Acute
[2016-11-27] MEDS: ACYCLOVIR 600 MG in D5W 100 ML IV SCH (05:27)
[2016-11-27 05:39] VITALS: BP 104/61; PULSE 68; RESP 14; TEMP 98.8; O2SAT 94
[2016-11-27] MEDS: FERROUS SULFATE 140 MG TAB.ER PO SCH (08:31)
[2016-11-27] MEDS: DOCUSATE SODIUM 100 MG CAP PO SCH (08:31)
[2016-11-27] MEDS: GABAPENTIN 300 MG CAP PO SCH (08:31)
[2016-11-27] MEDS: levETIRAcetam 500 MG TAB PO SCH (08:31)
--- NOTE | 2016-11-27 18:17 | GDS ---
[f rep st] DISCHARGE SUMMARY ADMITTING DIAGNOSIS: Debility status post herpes simplex virus encephalitis. DISCHARGE DIAGNOSIS: Debility status post herpes simplex virus encephalitis. OTHER DISCHARGE DIAGNOSES: Rheumatoid arthritis, cognitive impairment, history of seizures. CONSULTATIONS: There were none. PROCEDURES: There were none. COMPLICATIONS: There were none. HISTORY AND HOSPITAL COURSE: This patient came to [facility] inpatient rehabilitation from [facility] where she had been brought after seizures, fever, headaches, and confusion. She was diagnosed with herpes simplex virus encephalitis in the right temporal lobe. She was begun on levetiracetam for seizures. Encephalitis was treated with IV acyclovir. In the hospital she had headaches which responded to IV ketorolac and hyponatremia which resolved. She had progress in rehabilitation. Her initial functional independence measure was 94 on 11/26/2016, which is consistent with assisted living level of function. She required supervision or set up for activities of daily living except that she was independent for toileting. She ambulated with standby assist and had good balance. She needed cues to initiate tasks. She was noted to have cognitive impairment due to the encephalitis. She had decreased executive function with reduced initiation and task persistence. She had reduced speed of processing. She had improvement in cognition during her stay but she continued to have reduced initiation of verbal expression, reduced ability for complex problem solving, reduced insight into her condition and reduced attention. She continued IV acyclovir and did not have significant consequences regarding renal function. On 11/25/2016, her creatinine was 0.7 and her GFR was greater than 60 which had been stable during her stay. IV ketorolac was continued initially for her first few days and then it was discontinued per the plan on discharge from the hospital. Her headaches mostly resolved. She has a history of rheumatoid arthritis and had been on immunosuppression with adalimumab and methotrexate when she had the herpes encephalitis. These medications were held. 2 days before discharge she noted some return of symptoms with stiffness in the right 1st metacarpophalangeal joint and to the left ankle. She was diagnosed with iron deficiency anemia while at the hospital. She was prescribed an iron supplement. There was a drop in her hemoglobin and hematocrit when she was tested during her rehabilitation stay. In the hospital on 11/15/2016, her hemoglobin was 10.8 and her hematocrit was 31.1 and at the rehabilitation unit on 11/25/2016, her hemoglobin was 9.8, and her hematocrit was 29.5. PHYSICAL EXAM: VITAL SIGNS: On the day of discharge blood pressure was 104/61 , heart rate is 68, respiratory rate is 14, oxygen saturation is 94% on room air. Temperature was 37.1 degrees centigrade. GENERAL: This is a well- nourished, well-developed woman lying in bed, resting, sits up independently, cooperative and in no acute distress. HEART: There is regular rate and rhythm with no murmurs, rubs, or gallops. LUNGS: Clear to auscultation bilaterally. NEUROLOGIC: She is alert and oriented x3. She has somewhat slow processing though she has much improved spontaneous speech and elaboration. There is no focal weakness and sensation is intact to light touch. CONDITION UPON DISCHARGE: Good. ACTIVITY: Ad vladimir but continues supervision for mobility and activities of daily living and is no driving. DIET: Regular. DATE OF NEXT APPOINTMENT: She will see primary care provider, Dr. Esthela Lemus, on 12/13/2016. She will follow up with Infectious Disease physician, Dr. Damián Burns, on 12/04/2016. She will see her gas usage meter clerk, Dr. Mclaughlin, following her discharge and neurologist, Dr. Quinonez on 12/03/2016. MEDICATIONS AT DISCHARGE: 1. Acetaminophen 500 mg p.o. q.6 hours p.r.n. 2. Acyclovir 600 mg IV q.8 hours with a stop date of December 09, 2016. 3. Alteplase 2 mg IV push p.r.n., clogging of PICC line. 4. Senna 1 p.o. twice daily p.r.n. 5. Ferrous sulfate 140 mg p.o. daily. 6. Gabapentin 300 mg p.o. twice daily. 7. Hydrocodone/acetaminophen 5/325, 2 tabs p.o. q.4 hours p.r.n. 8. Levetiracetam 500 mg p.o. twice daily. ISSUES TO BE ADDRESSED AT FOLLOWUP: 1. Cognitive function. She will continue outpatient speech and language pathology and she can follow up regarding her progress with Primary Care and Neurology. 2. Anemia. Etiology was not evaluated. Continue iron supplement. CBC is to be drawn along with CMP every Friday regarding monitoring while on IV acyclovir , consider referral to Gastroenterology for endoscopy. 3. History of seizures at the initial presentation of encephalitis, continue levetiracetam with duration to be determined per Neurology. 4. Rheumatoid arthritis, currently on no medications, which she will follow up with her gas usage meter clerk regarding optimal treatment with avoidance of immune suppression. Greater than 35 minutes were spent on this discharge including medication reconciliation, coordination of care and counseling patient. /[id number]/MODL MTDD
== END 2016-11-27 13:43 | disposition home or self-care (01) | DRG 99 ==
LOC: BREH 16:10
PROVIDERS: ADMIT Internal Medicine; ATTEND Internal Medicine
PROC: F0636ZZ Communicative/Cognitive Integration Skills Treatment of Neurological System - Whole Body (ICD-10-PCS; principal; 2016-11-21)
PROC: F08Z4ZZ Home Management Treatment (ICD-10-PCS; principal; 2016-11-21)
PROC: F07M3ZZ Motor Function Treatment of Musculoskeletal System - Whole Body (ICD-10-PCS; principal; 2016-11-21)
DX: B00.4 Herpesviral encephalitis (principal); D50.9 Iron deficiency anemia, unspecified; M06.9 Rheumatoid arthritis, unspecified; R56.9 Unspecified convulsions; R27.9 Unspecified lack of coordination
CPT/HCPCS: 92507-GN; 92522-GN; 97110-GO; 97110-GP; 97112-GP; 97116-GP; 97161-GP; 97165-GO; 97530-GO; 97532-GO; 97535-GO; J0133

== ENCOUNTER → 2017-03-25 | Outpatient (CLI) | payer OTHER | LOC: BMCIMAGING 12:11 | PROVIDERS: ATTEND Internal Medicine Rheumatology | DX: M79.641 Pain in right hand (principal) ==

== ENCOUNTER → 2017-05-25 | Outpatient (CLI) | payer OTHER | LOC: FIMAGING 09:58 | PROVIDERS: ATTEND Physician Assistant Medical | DX: Z86.19 Personal history of other infectious and parasitic diseases (principal); G09 Sequelae of inflammatory diseases of central nervous system ==

== ENCOUNTER → 2017-05-28 | Outpatient (CLI) | payer OTHER ==
--- NOTE | 2017-05-28 14:33 | CPEEG ---
[f rep st] ELECTROENCEPHALOGRAM DATE OF STUDY: 05/28/2017 INTERPRETATION: Essentially normal EEG during wakefulness and sleep. There were no potentially epileptogenic abnormalities present in the recording. REPORT: This EEG contains 10 Hz alpha to the posterior head regions. There was no abnormal activation at rest, during photic stimulation, or hyperventilation. The patient became drowsy and fell asleep during the study. During drowsiness, there were bitemporal theta transients, maximal left. There was no abnormal activation during drowsiness, sleep, or during times of arousal. /[id number]/MODL MTDD
== END ==
LOC: FCPNEURO 11:43
PROVIDERS: ATTEND Physician Assistant Medical
DX: A89 Unspecified viral infection of central nervous system (principal)

== ENCOUNTER → 2017-12-24 | Outpatient (CLI) | payer OTHER | LOC: FIMAGING 12:37 | PROVIDERS: ATTEND Family Medicine | DX: Z12.31 Encounter for screening mammogram for malignant neoplasm of breast (principal); Z13.820 Encounter for screening for osteoporosis; M85.89 Other specified disorders of bone density and structure, multiple sites; Z78.0 Asymptomatic menopausal state; E07.9 Disorder of thyroid, unspecified; Z79.899 Other long term (current) drug therapy ==

== ENCOUNTER → 2018-07-20 | Outpatient (CLI) | payer OTHER | LOC: FIMAGING 12:20 | PROVIDERS: ATTEND Family Medicine | DX: E04.1 Nontoxic single thyroid nodule (principal) ==